=== PATIENT | female | born 1965 | race Two or more races ===

== ENCOUNTER 2020-09-03 09:58 | Outpatient (REF) | payer OTHER, SELFPAY ==
--- NOTE | 2020-09-03 | MM_ITS ---
EXAMINATION: MM SCREENING DIGITAL BREAST TOMOSYNTHESIS, BILATERAL CLINICAL INFORMATION: Screening. Asymptomatic. The lifetime risk of breast cancer based on the Tyrer-Cuzick Model is 6%. COMPARISON: Mammography: 08/29/2019, 08/23/2018, 08/17/2017, 02/07/2016 TECHNIQUE: Digital breast tomosynthesis is performed in both the craniocaudal and mediolateral oblique views along with computer-aided detection (CAD). Synthesized 2D images are generated from the tomosynthesis. FINDINGS: There are scattered areas of fibroglandular density (ACR BI-RADS breast composition Category b). There is fine fibronodular parenchymal pattern again noted. The left breast shows no interval mass or architectural abnormality. Neither breast shows abnormal calcifications. The skin contours are smooth. There is a 0.9 cm smooth nodule posterior upper outer right breast representing change from prior exams, possibly a cyst. Patient will be recalled for additional imaging. MM/MM tomosynthesis screening BI IMPRESSION: 1. Right: Smooth 0.9 cm nodule posterior upper outer quadrant. 2. Left: No mammographic evidence of malignancy. ASSESSMENT: BI-RADS 0: Incomplete - Need Additional Imaging Evaluation RECOMMENDATION: 1. Targeted ultrasound right breast. 2. Radiology department staff will contact the patient for additional imaging. This patient's information was entered into a reminder system with a target due date for their next mammogram.
== END 2020-09-03 09:59 | disposition home or self-care (01) ==
LOC: HO.MAMMO 09:58
PROVIDERS: Visit Provider Internal Medicine
DX: Z12.31 Encounter for screening mammogram for malignant neoplasm of breast (principal)
CPT/HCPCS: 77063; 77067

== ENCOUNTER 2020-09-10 13:26 | Outpatient (REF) | payer OTHER, SELFPAY ==
--- NOTE | 2020-09-10 13:32 | US_ITS ---
EXAMINATION: US DIAGNOSTIC ULTRASOUND BREAST, RIGHT CLINICAL INFORMATION: Right breast density upper outer quadrant. COMPARISON: Mammography of September 03, 2020 and studies dating back to August 30, 2013. TECHNIQUE: Ultrasound of the breast is performed with real-time oates scale imaging and color Doppler. FINDINGS: There is noted be a simple cyst measuring approximately 8 x 6 x 9 mm in size 10:00 position 8 cm from nipple which corresponds in size and position to the mammographic finding. No suspicious solid mass or region of abnormal distal sound shadowing appreciated. Results are discussed with the patient at time of visit. US/US breast RT limited IMPRESSION: Right breast density corresponds to a simple cyst. ASSESSMENT: BI-RADS 2: Benign RECOMMENDATION: Routine annual mammography screening due in 12 months. This patient's information was entered into a reminder system with a target due date for their next mammogram.
== END 2020-09-10 13:27 | disposition home or self-care (01) ==
LOC: HO.MAMMO 13:26
PROVIDERS: PCP Internal Medicine; Visit Provider Internal Medicine
DX: N63.11 Unspecified lump in the right breast, upper outer quadrant (principal)
CPT/HCPCS: 76642

== ENCOUNTER 2020-09-26 09:26 | Outpatient (REF) | payer OTHER, SELFPAY ==
[2020-09-26 10:23] LABS: MANUAL DIFF FLAG NO
[2020-09-26 10:40] LABS: Basophils Percent Auto 0.7 % (0-2); Eosinophils Absolute Auto 0.1 X10*3/uL (0.0-0.4); Eosinophils Percent Auto 3.9 % (0-4); Hematocrit 40.1 % (37-47); Hemoglobin 12.4 g/dl (12.0-16.0); Imm Gran Abs Auto 0.01 X10*3/uL (0.00-0.03); Imm Gran Pct Auto 0.4 % (0.0-0.4); Lymphocytes Absolute Auto 1.1 X10*3/uL (1.2-4.9); Lymphocytes Percent Auto 39.7 % (20-40); Mean Corpuscular HGB Conc 30.9 g/dl (31.0-35.0); Mean Corpuscular Hemoglobin 28.3 pg (27.0-33.0); Mean Corpuscular Volume 91.6 fL (80-98); Mean Platelet Volume 12.3 fL (9.4-12.3); Monocytes Absolute Auto 0.3 X10*3/uL (0.1-1.2); Monocytes Percent Auto 9.9 % (2-11); Neutrophils Absolute Auto 1.3 X10*3/uL (2.0-8.3); Neutrophils Percent Auto 45.4 % (45-73); Platelet Count 157 X10*3/uL (160-400); Red Blood Count 4.38 X10*6/uL (4.20-5.50); White Blood Count 2.8 X10*3/uL (4.8-10.8)
[2020-09-26 11:08] LABS: Alanine Aminotransferase 14 U/L (0-31); Albumin Level 4.4 g/dL (3.5-5.0); Alkaline Phosphatase 63 U/L (39-117); Anion Gap 12 (12-20); Aspartate Amino Transferase 17 U/L (5-31); Bilirubin Total 0.6 mg/dL (0.0-1.0); Blood Urea Nitrogen 18 mg/dL (9-16); Calcium 9.5 mg/dL (8.4-10.2); Carbon Dioxide 30 mmol/L (22-29); Chloride 103 mmol/L (96-108); Estimated Glomerular Filt Rate > 60; Glucose Random 87 mg/dL (60-115); Sodium 141 mmol/L (135-145); Total Protein 7.7 g/dL (6.5-8.0)
[2020-09-26 11:26] LABS: Creatinine Urine 35.46 mg/dL; Total Protein Urine Random < 7 mg/dL (<12)
[2020-09-26 11:29] LABS: Ferritin 307 ng/mL (10-250)
== END 2020-09-26 09:27 | disposition home or self-care (01) ==
LOC: HO.LAB 09:26
PROVIDERS: PCP Internal Medicine; Visit Provider Internal Medicine
DX: D50.8 Other iron deficiency anemias (principal); I10 Essential (primary) hypertension; R80.8 Other proteinuria
CPT/HCPCS: 36415; 80053; 82728; 84156; 85025

== ENCOUNTER 2021-01-18 09:57 | Outpatient (REF) | payer OTHER, SELFPAY ==
[2021-01-23 08:12] LABS: HPV mRNA E6/E7 rflx Not Detected (Not Detected)
== END 2021-01-18 09:58 | disposition home or self-care (01) ==
LOC: HO.LAB 09:57
PROVIDERS: Visit Provider Obstetrics & Gynecology
DX: Z01.419 Encounter for gynecological examination (general) (routine) without abnormal findings (principal); Z11.51 Encounter for screening for human papillomavirus (HPV)
CPT/HCPCS: 87624; 88142

== ENCOUNTER 2021-10-08 07:37 | Outpatient (REF) | payer OTHER, SELFPAY ==
[2021-10-08 07:51] LABS: MANUAL DIFF FLAG NO
[2021-10-08 08:33] LABS: Basophils Percent Auto 0.4 % (0-2); Eosinophils Absolute Auto 0.1 X10*3/uL (0.0-0.4); Eosinophils Percent Auto 5.2 % (0-4); Hematocrit 38.2 % (37.0-47.0); Hemoglobin 11.7 g/dl (12.0-16.0); Imm Gran Abs Auto 0.01 X10*3/uL (0.00-0.03); Imm Gran Pct Auto 0.4 % (0.0-0.4); Lymphocytes Absolute Auto 1.1 X10*3/uL (1.2-4.9); Lymphocytes Percent Auto 41.8 % (20-40); Mean Corpuscular HGB Conc 30.6 g/dl (31.0-35.0); Mean Corpuscular Hemoglobin 27.8 pg (27.0-33.0); Mean Corpuscular Volume 90.7 fL (80.0-98.0); Mean Platelet Volume 12.3 fL (9.4-12.3); Monocytes Absolute Auto 0.4 X10*3/uL (0.1-1.2); Monocytes Percent Auto 13.4 % (2-11); Neutrophils Percent Auto 38.8 % (45-73); Platelet Count 145 X10*3/uL (160-400); Red Blood Count 4.21 X10*6/uL (4.20-5.50); Red Cell Distribution Width 12.3 % (11.0-16.0); White Blood Count 2.7 X10*3/uL (4.8-10.8)
[2021-10-08 09:00] LABS: Alanine Aminotransferase 13 U/L (0-31); Albumin Level 4.1 g/dL (3.5-5.0); Alkaline Phosphatase 58 U/L (39-117); Anion Gap 12 (12-20); Aspartate Amino Transferase 20 U/L (5-31); Bilirubin Total 0.6 mg/dL (0.0-1.0); Blood Urea Nitrogen 14 mg/dL (9-16); Calcium 9.5 mg/dL (8.4-10.2); Carbon Dioxide 29 mmol/L (22-29); Chloride 105 mmol/L (96-108); Cholesterol 181 mg/dL; Estimated Glomerular Filt Rate > 60; Glucose Random 87 mg/dL (60-115); HDL Cholesterol 52 mg/dL; LDL Cholesterol Calculated 120 mg/dl; Potassium 4.4 mmol/L (3.3-5.1); Sodium 142 mmol/L (135-145); Total Protein 7.5 g/dL (6.5-8.0); Triglycerides 46 mg/dL
[2021-10-08 09:15] LABS: Creatinine Urine 77.73 mg/dL; Microalbumin Urine < 5.0 mg/L
[2021-10-08 09:24] LABS: Thyroid Stimulating Hormone 2.89 uIU/mL (0.32-4.0)
== END 2021-10-08 07:38 | disposition home or self-care (01) ==
LOC: HO.LAB 07:37
PROVIDERS: PCP Internal Medicine; Visit Provider Internal Medicine
DX: I10 Essential (primary) hypertension (principal); M06.4 Inflammatory polyarthropathy; M32.9 Systemic lupus erythematosus, unspecified; R80.8 Other proteinuria
CPT/HCPCS: 36415; 80053; 80061; 82043; 84443; 85025

== ENCOUNTER 2021-10-31 13:58 | Outpatient (REF) | payer OTHER, SELFPAY ==
--- NOTE | ~2021-10-31 | MM_ITS ---
EXAMINATION: MM SCREENING DIGITAL BREAST TOMOSYNTHESIS, BILATERAL CLINICAL INFORMATION: Screening. Asymptomatic. The lifetime risk of breast cancer based on the Tyrer-Cuzick Model is 4.8%. COMPARISON: Mammography: Ultrasound September 10, 2020 and mammography dating back to August 30, 2013 TECHNIQUE: Digital breast tomosynthesis is performed in both the craniocaudal and mediolateral oblique views along with computer-aided detection (CAD). Synthesized 2D images are generated from the tomosynthesis. FINDINGS: There are scattered areas of fibroglandular density (ACR BI-RADS breast composition Category b). There are no significant masses, abnormal calcifications, or other abnormalities. There is stable oval lobulated density about the central medial aspect of the right breast. MM/MM tomosynthesis screening BI IMPRESSION: There are no significant changes from prior study. ASSESSMENT: BI-RADS 1: Negative RECOMMENDATION: Routine annual mammography screening. This patient's information was entered into a reminder system with a target due date for their next mammogram.
== END 2021-10-31 13:59 | disposition home or self-care (01) ==
LOC: HO.MAMMO 13:58
PROVIDERS: PCP Internal Medicine; Visit Provider Internal Medicine
DX: Z12.31 Encounter for screening mammogram for malignant neoplasm of breast (principal)
CPT/HCPCS: 77063; 77067

== ENCOUNTER 2022-01-08 06:55 | Outpatient (REF) | payer OTHER, SELFPAY ==
[2022-01-08 07:17] LABS: MANUAL DIFF FLAG NO
[2022-01-08 08:03] LABS: Basophils Percent Auto 0.4 % (0-2); Eosinophils Absolute Auto 0.1 X10*3/uL (0.0-0.4); Eosinophils Percent Auto 3.1 % (0-4); Hematocrit 37.2 % (37.0-47.0); Hemoglobin 11.5 g/dl (12.0-16.0); Lymphocytes Absolute Auto 0.8 X10*3/uL (1.2-4.9); Lymphocytes Percent Auto 32.2 % (20-40); Mean Corpuscular HGB Conc 30.9 g/dl (31.0-35.0); Mean Corpuscular Hemoglobin 28.2 pg (27.0-33.0); Mean Corpuscular Volume 91.2 fL (80.0-98.0); Mean Platelet Volume 12.5 fL (9.4-12.3); Monocytes Absolute Auto 0.3 X10*3/uL (0.1-1.2); Monocytes Percent Auto 12.4 % (2-11); Neutrophils Absolute Auto 1.3 x10*3/uL (2.0-8.3); Neutrophils Percent Auto 51.9 % (45-73); Platelet Count 124 X10*3/uL (160-400); Red Blood Count 4.08 X10*6/uL (4.20-5.50); Red Cell Distribution Width 12.7 % (11.0-16.0); White Blood Count 2.6 X10*3/uL (4.8-10.8)
[2022-01-08 08:28] LABS: Alanine Aminotransferase 19 U/L (0-31); Alkaline Phosphatase 60 U/L (39-117); Anion Gap 11 (12-20); Aspartate Amino Transferase 20 U/L (5-31); Bilirubin Total 0.5 mg/dL (0.0-1.0); Blood Urea Nitrogen 14 mg/dL (9-16); Calcium 9.7 mg/dL (8.4-10.2); Carbon Dioxide 29 mmol/L (22-29); Chloride 106 mmol/L (96-108); Cholesterol 146 mg/dL; Estimated Glomerular Filt Rate > 60; Glucose Random 84 mg/dL (60-115); HDL Cholesterol 48 mg/dL; LDL Cholesterol Calculated 87 mg/dl; Potassium 4.1 mmol/L (3.3-5.1); Sodium 142 mmol/L (135-145); Total Protein 7.3 g/dL (6.5-8.0); Triglycerides 55 mg/dL
[2022-01-08 08:57] LABS: Ferritin 290 ng/mL (10-250)
== END 2022-01-08 06:56 | disposition home or self-care (01) ==
LOC: HO.LAB 06:55
PROVIDERS: PCP Internal Medicine; Visit Provider Internal Medicine
DX: Z00.00 Encounter for general adult medical examination without abnormal findings (principal); D61.818 Other pancytopenia; E78.00 Pure hypercholesterolemia, unspecified; I10 Essential (primary) hypertension; M32.9 Systemic lupus erythematosus, unspecified; R80.8 Other proteinuria
CPT/HCPCS: 36415; 80053; 80061; 82728; 85025

== ENCOUNTER 2022-01-22 15:18 | Outpatient (REF) | payer OTHER, SELFPAY ==
[2022-01-28 02:13] LABS: HPV mRNA E6/E7 rflx Not Detected (Not Detected)
== END 2022-01-22 15:19 | disposition home or self-care (01) ==
LOC: HO.LAB 15:18
PROVIDERS: Visit Provider Advanced Practice Midwife
DX: Z01.419 Encounter for gynecological examination (general) (routine) without abnormal findings (principal); B37.3 Candidiasis of vulva and vagina; Z79.899 Other long term (current) drug therapy
CPT/HCPCS: 87624; 88142; 99212

== ENCOUNTER 2022-10-10 07:43 | Outpatient (REF) | payer OTHER, SELFPAY ==
[2022-10-10 07:58] LABS: MANUAL DIFF FLAG NO
[2022-10-10 08:13] LABS: Basophils Percent Auto 0.3 % (0-2); Eosinophils Absolute Auto 0.1 X10*3/uL (0.0-0.4); Eosinophils Percent Auto 3.9 % (0-4); Imm Gran Abs Auto 0.01 X10*3/uL (0.00-0.03); Imm Gran Pct Auto 0.3 % (0.0-0.4); Lymphocytes Absolute Auto 1.1 X10*3/uL (1.2-4.9); Lymphocytes Percent Auto 34.4 % (20-40); Mean Corpuscular HGB Conc 31.6 g/dl (31.0-35.0); Mean Corpuscular Hemoglobin 28.3 pg (27.0-33.0); Mean Corpuscular Volume 89.6 fL (80.0-98.0); Mean Platelet Volume 12.3 fL (9.4-12.3); Monocytes Absolute Auto 0.4 X10*3/uL (0.1-1.2); Monocytes Percent Auto 11.7 % (2-11); Neutrophils Absolute Auto 1.5 x10*3/uL (2.0-8.3); Neutrophils Percent Auto 49.4 % (45-73); Platelet Count 133 X10*3/uL (160-400); Red Blood Count 4.24 X10*6/uL (4.20-5.50); Red Cell Distribution Width 12.5 % (11.0-16.0); White Blood Count 3.1 X10*3/uL (4.8-10.8)
[2022-10-10 08:36] LABS: Alanine Aminotransferase 24 U/L (0-31); Albumin Level 4.2 g/dL (3.5-5.0); Alkaline Phosphatase 69 U/L (39-117); Anion Gap 13 (12-20); Aspartate Amino Transferase 23 U/L (5-31); Bilirubin Total 0.6 mg/dL (0.0-1.0); Blood Urea Nitrogen 23 mg/dL (9-16); Calcium 8.7 mg/dL (8.4-10.2); Carbon Dioxide 25 mmol/L (22-29); Chloride 107 mmol/L (96-108); Cholesterol 148 mg/dL; Estimated Glomerular Filt Rate > 60; Glucose Random 88 mg/dL (60-115); HDL Cholesterol 52 mg/dL; LDL Cholesterol Calculated 90 mg/dl; Potassium 4.1 mmol/L (3.3-5.1); Sodium 141 mmol/L (135-145); Total Protein 7.2 g/dL (6.5-8.0); Triglycerides 32 mg/dL
== END 2022-10-10 07:44 | disposition home or self-care (01) ==
LOC: HO.LAB 07:43
PROVIDERS: PCP Internal Medicine; Visit Provider Internal Medicine
DX: D64.89 Other specified anemias (principal); E78.00 Pure hypercholesterolemia, unspecified; I10 Essential (primary) hypertension; M06.4 Inflammatory polyarthropathy
CPT/HCPCS: 36415; 80053; 80061; 85025

== ENCOUNTER 2022-11-26 12:44 | Outpatient (REF) | payer OTHER, SELFPAY ==
--- NOTE | ~2022-11-26 | MM_ITS ---
EXAMINATION: MM SCREENING DIGITAL BREAST TOMOSYNTHESIS, BILATERAL CLINICAL INFORMATION: Screening. Asymptomatic. The lifetime risk of breast cancer based on the Tyrer-Cuzick Model is 5%. COMPARISON: Mammography: October 31, 2021 and studies dating back to October 02, 2014 TECHNIQUE: Digital breast tomosynthesis is performed in both the craniocaudal and mediolateral oblique views along with computer-aided detection (CAD). Synthesized 2D images are generated from the tomosynthesis. FINDINGS: The breasts are heterogeneously dense, which may obscure small masses (ACR BI-RADS breast composition Category c). There are no new significant masses, abnormal calcifications, or other abnormalities. Oval density about the mid lateral aspect of the left breast is seen and there is noted to be similar to study of August 29, 2019 MM/MM tomosynthesis screening BI IMPRESSION: No significant changes from prior exam. ASSESSMENT: BI-RADS 1: Negative RECOMMENDATION: Routine annual mammography screening. This patient's information was entered into a reminder system with a target due date for their next mammogram.
== END 2022-11-26 12:45 | disposition home or self-care (01) ==
LOC: HO.MAMMO 12:44
PROVIDERS: PCP Internal Medicine; Visit Provider Internal Medicine
DX: Z12.31 Encounter for screening mammogram for malignant neoplasm of breast (principal)
CPT/HCPCS: 77063; 77067

== ENCOUNTER 2022-12-20 07:04 | Outpatient (REF) | payer OTHER, SELFPAY ==
[2022-12-20 07:24] LABS: MANUAL DIFF FLAG NO
[2022-12-20 09:02] LABS: Basophils Percent Auto 0.7 % (0-2); Eosinophils Absolute Auto 0.2 X10*3/uL (0.0-0.4); Eosinophils Percent Auto 5.2 % (0-4); Hemoglobin 11.4 g/dl (12.0-16.0); Lymphocytes Percent Auto 35.2 % (20-40); Mean Corpuscular HGB Conc 31.7 g/dl (31.0-35.0); Mean Corpuscular Hemoglobin 28.8 pg (27.0-33.0); Mean Corpuscular Volume 90.9 fL (80.0-98.0); Mean Platelet Volume 12.3 fL (9.4-12.3); Monocytes Absolute Auto 0.4 X10*3/uL (0.1-1.2); Monocytes Percent Auto 14.3 % (2-11); Neutrophils Absolute Auto 1.3 x10*3/uL (2.0-8.3); Neutrophils Percent Auto 44.6 % (45-73); Platelet Count 158 X10*3/uL (160-400); Red Blood Count 3.96 X10*6/uL (4.20-5.50); Red Cell Distribution Width 12.3 % (11.0-16.0); White Blood Count 2.9 X10*3/uL (4.8-10.8)
[2022-12-20 09:32] LABS: Alanine Aminotransferase 15 U/L (0-31); Alkaline Phosphatase 65 U/L (39-117); Anion Gap 14 (12-20); Aspartate Amino Transferase 18 U/L (5-31); Bilirubin Total 0.4 mg/dL (0.0-1.0); Blood Urea Nitrogen 17 mg/dL (9-16); Calcium 9.1 mg/dL (8.4-10.2); Carbon Dioxide 24 mmol/L (22-29); Chloride 104 mmol/L (96-108); Estimated Glomerular Filt Rate > 60; Glucose Random 83 mg/dL (60-115); Potassium 4.4 mmol/L (3.3-5.1); Sodium 138 mmol/L (135-145)
[2022-12-20 10:03] LABS: Creatinine Urine 33.92 mg/dL; Total Protein Urine Random < 7 mg/dL (<12)
== END 2022-12-20 07:05 | disposition home or self-care (01) ==
LOC: HO.LAB 07:04
PROVIDERS: PCP Internal Medicine; Visit Provider Internal Medicine
DX: Z00.00 Encounter for general adult medical examination without abnormal findings (principal); D69.6 Thrombocytopenia, unspecified; E78.00 Pure hypercholesterolemia, unspecified; I10 Essential (primary) hypertension; M32.9 Systemic lupus erythematosus, unspecified
CPT/HCPCS: 36415; 80053; 84156; 85025

== ENCOUNTER 2023-01-26 14:28 | Outpatient (REF) | payer OTHER, SELFPAY ==
[2023-01-27 11:19] LABS: BV Int Neg Control Negative (Negative); BV Int Pos Control Positive (Positive)
== END 2023-01-26 14:29 | disposition home or self-care (01) ==
LOC: HO.LNP 14:28
PROVIDERS: PCP Internal Medicine; Visit Provider Advanced Practice Midwife
DX: Z01.419 Encounter for gynecological examination (general) (routine) without abnormal findings (principal); B37.31 Acute candidiasis of vulva and vagina; F52.5 Vaginismus not due to a substance or known physiological condition
CPT/HCPCS: 87480; 87510; 87660

== ENCOUNTER 2023-09-30 15:06 | Outpatient (AMB) | payer OTHER, SELFPAY ==
[2023-09-30 15:08] VITALS: BP 110/70; PULSE 86; TEMP 36.7; O2SAT 99; BMI 30.4
--- NOTE | 2023-09-30 15:08 | AM.OFFWIN_ITS ---
Intake Vital Signs 09/30/23 15:08 Height 5 ft 2 in Weight 166 lb BMI 30.4 BP 110/70 Blood Pressure Location Lt brachial Position Sitting Pulse 86 Pulse Source Pulse Oximeter Temp 98.0 F Temp Source Temporal Artery Scan Pulse Oximetry (%) 99 Oxygen Delivery Method Room Air Intake Visit Reasons: EP sinus headache/pressure Intake Note: pt is here today for sinus headache pressure started yesterday Patient Tobacco Use Status: Never used Tobacco Allergies No Known Allergies Allergy (Verified 09/30/23 15:17) Do you need a note to return to daycare/school/sports/work: Yes HPI HPI Comments History of Present Illness Details 57 y/o female patient who presents to [facility] in clinic with c/o Sinus pressure and headaches since yesterday. She has not taken any OTC medicine today. Denies fevers, chills, nausea or vomiting. Denies any recent sick contacts. PFSH Medical History (System 05/20/23 @ 15:15 by Linda Flaherty) delivery delivered HTN (hypertension) Surgical History Hx of section S/P hernia surgery Social History (System 05/20/23 @ 15:15 by Linda Flaherty) Alcohol intake: never Patient Tobacco Use Status: Never used Tobacco Gender identity: Female Review of Systems Const All systems reviewed & are unremarkable except as noted in HPI and below Physical Exam Vital Signs: Last Vital Signs Temp 98.0 F 09/30/23 15:08 Pulse 86 09/30/23 15:08 BP 110/70 09/30/23 15:08 Pulse Ox 99 09/30/23 15:08 Oxygen Delivery Method Room Air 09/30/23 15:08 BMI result Body Mass Index 30.4 Const General: comfortable and no acute distress HEENT Head: Yes normocephalic and Yes atraumatic Ears: external ears normal and TM's normal bilaterally General nose exam: Normal nasal mucous membranes and turbinates present Face and sinus: Yes sinuses nontender Mouth: moist mucous membranes Throat: Yes posterior oropharynx normal and Yes uvula midline Resp Effort & Inspection: normal respiratory effort and able to speak in complete sentences Auscultation: clear to auscultation bilaterally Cardio Rate: regular rate Rhythm: regular rhythm Assessment & Plan Assessment & Plan (1) Sinus headache: Code(s): R51.9 - Headache, unspecified Plan: - Rest - Acetaminophen for pain relief - Hydrate well Orders: Orders SARS-CoV2/FLU/RSV Today R09.89 - Other specified symptoms and signs involving the circulatory and respiratory systems, R51.9 - Headache, unspecified Medications: New acetaminophen (Tylenol) TAKE 2 TABS EVERY SIX HOURS NEEDED FOR PAIN 325 mg PO Q6H PRN 30 caps 0RF fever or pain R51.9 - Headache, unspecified Coding Level of Care Code Est Pt Level 3 (38541) Diagnoses Sinus headache R51.9 Time Spent (min) 15
== END 2023-09-30 15:49 | disposition home or self-care (01) ==
PROVIDERS: PCP Internal Medicine; Visit Provider Nurse Practitioner Family
DX: R51.9 Headache, unspecified (principal)
CPT/HCPCS: 99213

== ENCOUNTER 2023-09-30 16:28 | Outpatient (REF) | payer OTHER, SELFPAY ==
[2023-09-30 17:17] LABS: Influenza A PCR NEGATIVE (Negative); Influenza B PCR NEGATIVE (Negative); Resp Syncy Virus RNA Qual PCR NEGATIVE (Negative); SARS COV2 PCR INHOUSE NEGATIVE (Negative)
== END 2023-09-30 16:29 | disposition home or self-care (01) ==
LOC: HO.HMGCLNP 16:28
PROVIDERS: Visit Provider Nurse Practitioner Family
DX: R51.9 Headache, unspecified (principal); R09.89 Other specified symptoms and signs involving the circulatory and respiratory systems
CPT/HCPCS: 0241U

== ENCOUNTER 2023-10-17 07:47 | Outpatient (REF) | payer OTHER, SELFPAY ==
[2023-10-17 08:58] LABS: Alanine Aminotransferase 21 U/L (0-31); Albumin Level 4.1 g/dL (3.5-5.0); Alkaline Phosphatase 67 U/L (39-117); Anion Gap 10 (12-20); Aspartate Amino Transferase 19 U/L (5-31); Bilirubin Total 0.6 mg/dL (0.0-1.0); Blood Urea Nitrogen 11 mg/dL (9-16); Calcium 9.3 mg/dL (8.4-10.2); Carbon Dioxide 30 mmol/L (22-29); Chloride 103 mmol/L (96-108); Cholesterol 143 mg/dL (<200); Estimated Glomerular Filt Rate > 60; Glucose Random 86 mg/dL (60-115); HDL Cholesterol 54 mg/dL (>40); LDL Cholesterol Calculated 80 mg/dL (<100); Potassium 4.1 mmol/L (3.3-5.1); Sodium 139 mmol/L (135-145); Total Protein 7.5 g/dL (6.5-8.0); Triglycerides 47 mg/dL (<150)
== END 2023-10-17 07:48 | disposition home or self-care (01) ==
LOC: HO.LAB 07:47
PROVIDERS: PCP Internal Medicine; Visit Provider Internal Medicine
DX: E78.00 Pure hypercholesterolemia, unspecified (principal); I10 Essential (primary) hypertension; M32.9 Systemic lupus erythematosus, unspecified; R80.9 Proteinuria, unspecified
CPT/HCPCS: 36415; 80053; 80061

== ENCOUNTER 2023-12-16 14:15 | Outpatient (REF) | payer OTHER, SELFPAY | END 2023-12-16 14:16 | disposition home or self-care (01) | LOC: HO.MAMMO 14:15 | PROVIDERS: PCP Internal Medicine; Visit Provider Internal Medicine | DX: Z12.31 Encounter for screening mammogram for malignant neoplasm of breast (principal) | CPT/HCPCS: 77063; 77067 ==

== ENCOUNTER → 2023-12-16 14:15 | Outpatient (BNV) | payer OTHER, SELFPAY | PROVIDERS: PCP Internal Medicine; Visit Provider Radiology Diagnostic Radiology | DX: Z12.31 Encounter for screening mammogram for malignant neoplasm of breast (principal) | CPT/HCPCS: 77063; 77067 ==

== ENCOUNTER 2024-01-11 10:48 | Outpatient (AMB) | payer OTHER, SELFPAY ==
--- NOTE | 2024-01-11 12:08 | MHC.OFFWIV ---
Intake Vital Signs 01/11/24 12:11 Height 5 ft 2 in BP 116/72 Blood Pressure Location Rt brachial Position Sitting Pulse 71 Pulse Source Pulse Oximeter Temp 97.8 F Temp Source Oral Pulse Oximetry (%) 99 Intake Visit Reasons: EP Itchy/Discharge from eyes, cough Intake Note: pt is here for itchy with discharge from bilateral eyes, with cough since last week Patient Tobacco Use Status: Never used Tobacco Forensic Photographer Required: Yes Forensic Photographer Language: Telugu Allergies No Known Allergies Allergy (Verified 01/11/24 12:12) Do you need a note to return to daycare/school/sports/work: No HPI EP Itchy/Discharge from eyes, cough HPI Details Patient presents with 4 days of purulent discharge from bilateral eyes. She also notes sinus pressure and congestion. She denies fever productive cough chills or severe headache or vision change. [facility] Medical History (System 05/20/23 @ 15:15 by Linda Flaherty) delivery delivered HTN (hypertension) Surgical History Hx of section S/P hernia surgery Social History (System 05/20/23 @ 15:15 by Linda Flaherty) Alcohol intake: never Patient Tobacco Use Status: Never used Tobacco Gender identity: Female Review of Systems Const Reports as per HPI and Reports no additional complaints Eyes Reports no additional complaints ENT Reports no additional complaints and Reports as per HPI Card Reports as per HPI and Reports no additional complaints Resp Reports as per HPI and Reports no additional complaints Neuro Reports no additional complaints and Reports as per HPI Physical Exam Vital Signs: Last Vital Signs Temp 97.8 F 01/11/24 12:11 Pulse 71 01/11/24 12:11 BP 116/72 01/11/24 12:11 Pulse Ox 99 01/11/24 12:11 Const General: cooperative, comfortable and no acute distress Orientation/consciousness: patient oriented x3 HEENT Ears: external ears normal and TM's normal bilaterally General nose exam: Normal external nose present and Nasal discharge present mucoid Face and sinus: Yes Facial tenderness on exam of face and sinuses (Bilateral maxillary sinuses) Mouth: Normal oral and palatal mucosa present Eyes Alignment and Position: alignment normal Periorbital: periorbital findings normal Eyelids: Yes eyelids normal Conjunctivae: conjunctival abnormal bilateral (Injection with mild purulent discharge noted) Corneas: corneas normal Pupils: Equal, round and reactive pupils present EOM: EOMs intact bilaterally Resp Effort & Inspection: normal respiratory effort Auscultation: clear to auscultation bilaterally Cardio Rate: regular rate Rhythm: regular rhythm Heart sounds: S1 normal heart sound present and S2 normal heart sound present Neuro General: patient oriented x3 Cranial nerves: Yes Equal, round and reactive pupils present Assessment & Plan Assessment & Plan (1) Sinusitis, acute: Code(s): J01.90 - Acute sinusitis, unspecified Qualifiers: Sinusitis location: maxillary Recurrence: non-recurrent Qualified Code(s): J01.00 - Acute maxillary sinusitis, unspecified Plan: Will treat with Augmentin b.i.d. times 10 days. Return to clinic if symptoms do not improve or worsen in any way (2) Conjunctivitis: Code(s): H10.9 - Unspecified conjunctivitis Qualifiers: Conjunctivitis type: acute Acute conjunctivitis type: bacterial Laterality: bilateral Qualified Code(s): H10.33 - Unspecified acute conjunctivitis, bilateral Plan: Will treat with Polytrim drops t.i.d. x7 days return to clinic if symptoms do not improve in any way. Medications: New amoxicillin-pot clavulanate 875-125 mg 1 tab PO Q12H 20 tabs 0RF 10 days polymyxin B sulf-trimethoprim 10,000 unit- 1 mg/mL while awake; do not exceed 6 doses in 24 hours 1 drp ophthalmic (eye) QID 10 mL 0RF both eyes 7 days H10.9 - Unspecified conjunctivitis Coding Level of Care Code Est Pt Level 3 (84232) Diagnoses Acute non-recurrent maxillary sinusitis J01.00 Sinusitis location: maxillary Recurrence: non-recurrent Acute bacterial conjunctivitis of both eyes H10.33 Conjunctivitis type: acute Acute conjunctivitis type: bacterial Laterality: bilateral
[2024-01-11 12:11] VITALS: BP 116/72; PULSE 71; TEMP 36.6; O2SAT 99
== END 2024-01-11 12:33 | disposition home or self-care (01) ==
PROVIDERS: PCP Internal Medicine; Visit Provider Physician Assistant
DX: J01.00 Acute maxillary sinusitis, unspecified (principal); H10.33 Unspecified acute conjunctivitis, bilateral
CPT/HCPCS: 99213

== ENCOUNTER 2024-01-21 14:25 | Outpatient (REF) | payer OTHER, SELFPAY ==
[2024-01-21 15:26] LABS: Anion Gap 10 (12-20); Blood Urea Nitrogen 12 mg/dL (9-16); Carbon Dioxide 29 mmol/L (22-29); Chloride 95 mmol/L (96-108); Estimated Glomerular Filt Rate > 60; Potassium 3.9 mmol/L (3.3-5.1); Sodium 130 mmol/L (135-145)
[2024-01-21 16:44] LABS: Creatinine Urine 28.93 mg/dL; Total Protein Urine Random < 7 mg/dL (<12)
[2024-01-22 12:23] LABS: Complement C3 59 mg/dL (83-193)
[2024-01-26 13:24] LABS: ANA Pattern 2 Nuclear, Homogeneous; Anti Nuclear Antibody Screen POSITIVE (NEGATIVE)
== END 2024-01-21 14:26 | disposition home or self-care (01) ==
LOC: HO.LAB 14:25
PROVIDERS: Visit Provider Internal Medicine Nephrology
DX: M32.14 Glomerular disease in systemic lupus erythematosus (principal)
CPT/HCPCS: 36415; 80051; 82310; 82565; 82570; 84156; 84520; 86038; 86039; 86160

== ENCOUNTER 2024-03-17 14:49 | Outpatient (AMB) | payer OTHER, SELFPAY ==
[2024-03-17 15:17] VITALS: BP 94/64; BMI 29.6
--- NOTE | 2024-03-17 15:17 | MHC.OFFVIS ---
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 Repairer Forging: Die Repairer Forging Present Allergies No Known Allergies Allergy (Verified 03/17/24 15:18) Medication List - Last Reconciled 03/17/24 by Letty Montes CNM acetaminophen 1,000 mg (2 x 500 mg) PO Q6H PRN atorvastatin 10 mg PO DAILY clotrimazole 1% appl topical BID hydroxychloroquine 200 mg PO BID lisinopril 20 mg PO DAILY lisinopril-hydrochlorothiazide 20-12.5 mg 1 tab PO DAILY polymyxin B sulf-trimethoprim 10,000 unit- 1 mg/mL 1 drp ophthalmic (eye) QID 7 days triamcinolone acetonide 0.5% appl topical Post menopausal: Yes HPI HPI 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 She does remember that last year's pelvic exam was very very difficult and traumatic so we discussed that we do not need to repeat the pelvic exam this year if she is not having any issues at all she is not having any issues with vaginal itching either she says her insurance has a very high co-pay of 40 dollars and it really only helps her if it is a very expensive medication over 100 dollars. She is on lisinopril and something for her arthritis. Currently she is not having any issues and says her blood pressure is well-controlled. [facility] Medical History (Updated 03/17/24 @ 16:04 by Letty Montes CNM) Hyperlipemia delivery delivered HTN (hypertension) Surgical History S/P hernia surgery Hx of section Social History Alcohol intake: never Patient Tobacco Use Status: Never used Tobacco Gender identity: Female Female Reproductive History Menstrual Age of Menarche: 10 Duration of menses: <3 days control method: none Total pregnancies: 3 Full term: 3 Date of last pap smear: 01/22/22 (negative) History of abnormal pap smear: No Physical Exam Vital Signs: Last Vital Signs BP 94/64 03/17/24 15:17 BMI result Body Mass Index 29.6 Const General: healthy appearing, comfortable, no acute distress, well developed and alert Nutritional Appearance: average body habitus Orientation/consciousness: patient oriented x3 Limitations: no limitations HEENT Head: Yes normocephalic Neck Neck: Yes normal visual inspection Thyroid: Thyroid normal Chest Chest palpation & inspection: normal inspection of the chest Breast/axilla inspection: normal inspection of the breasts and normal inspection of the axillae Breast/axilla palpation: normal palpation of the breasts and normal palpation of the axillae Resp Effort & Inspection: normal respiratory effort GI Inspection: Yes normal to inspection, No Abdominal wall edema and No distended Palpation (GI): Soft to palpation and nontender Other: External exam within normal limits no vaginal redness or irritation or abnormal discharge speculum and bimanual exam deferred secondary to challenges of having exam last year for patient her last Pap smear was 2021- and she has never had a history of an abnormal Pap.. External Female Exam: normal external appearance and normal appearance of the urethra Neuro General: patient oriented x3 Results Reviewed Results Reviewed: Name: Mala Allen Age/Sex: 56/F Attending: Letty Montes CNM : 1965 Submitted by: Letty Montes CNM Copies to: MR #: [id number] Status: DEP REF Collected: 01/22/22 Location: .LAB Received: 01/23/22 Interpretation Satisfactory for evaluation. No endocervical cells seen. Mild inflammation. Negative for intraepithelial lesion or malignancy. HPV mRNA E6/E7: NOT DETECTED This assay detects E6/E7 viral messenger RNA (mRNA) from 14 high-risk HPV types (16, 18, 31, 33, 35, 39, 45, 51, 52, 56, 58, 59, 66, 68) HPV testing performed by [facility], [place], [place]. See reference laboratory pion of the EMR for entire report. Clinical Information LMP: Postmenopause Previous PAP test: 01/21/2021, Unknown Findings Material Received ThinPrep Cervical Electronically Signed By: LYSSA Stephens (ASCP) 02/06/22 0944 The Pap Test is a screening procedure with the inherent possibility of both false negative and false positive results. Results should be interpreted in the context of historic and current clinical findings. Reliability of the Pap Test is enhanced by performing the test on a regular repetitive basis. Patient: Mala Allen Age/Sex: 56/F MR#: [id number] Page 1 of 1 Assessment & Plan Assessment & Plan (1) Cervical cancer screening: Comment: lsil 2007,, neg 2020, pap done 01/22/22= neg w neg hpv Code(s): Z12.4 - Encounter for screening for malignant neoplasm of cervix Category: Medical (2) Well woman exam (no gynecological exam): Comment: External exam within normal limits for postmenopausal Code(s): Z00.00 - Encounter for general adult medical examination without abnormal findings Category: Medical Plan -----Discussed in this visit the following: healthy balanced diet, regular and consistent exercise, getting recommended health screens, doing the best she can for her particular health concerns, kegel exercises, pap smear screening and followup recommendations, mammography screening and SBE, normal changes in cycles in her life stage--- . I wrote down for her the names of miconazole 7 cream and clotrimazole 7 cream on a piece of paper and suggested that any time she has severe vaginal itching and burning and feels she needs to treat it that she should check [facility] for who has the cheapest available version of either of these creams to save her money she could consider having it available when she needs it but since she only rarely has an issue it may not be worth it to her to have around the house. Discussed the challenges of postmenopausal changes. 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 She is getting her mammograms and she sees her primary and she needs to and regularly she says her blood pressure is under good control RTC 1 year Coding Level of Care Code Est Pt Prev Care 40-64y(38524) Diagnoses Cervical cancer screening Z12.4 Well woman exam (no gynecological exam) Z00.00
== END 2024-03-17 15:57 | disposition home or self-care (01) ==
LOC: HO.HWSM 14:49
PROVIDERS: PCP Internal Medicine; Visit Provider Advanced Practice Midwife
DX: Z01.419 Encounter for gynecological examination (general) (routine) without abnormal findings (principal)
CPT/HCPCS: 99396

== ENCOUNTER → 2024-03-17 14:49 | Outpatient (BNVA) | payer OTHER, SELFPAY | PROVIDERS: PCP Internal Medicine; Visit Provider Advanced Practice Midwife | DX: Z01.419 Encounter for gynecological examination (general) (routine) without abnormal findings (principal); Z12.4 Encounter for screening for malignant neoplasm of cervix; Z00.00 Encounter for general adult medical examination without abnormal findings | CPT/HCPCS: 99396 ==

== ENCOUNTER 2024-03-29 11:03 | Outpatient (AMB) | payer OTHER, SELFPAY ==
--- NOTE | 2024-03-29 11:07 | MHC.OFFVIS ---
Vital Signs 03/29/24 11:08 Height 5 ft 2 in Weight 160 lb 14.999 oz BMI 29.4 BP 109/59 L Blood Pressure Location Lt brachial Position Sitting Pulse 69 Intake Visit Reasons: [place] screening Intake Note: Mala presents in the office as a colonoscopy screening. CC: She states that she is here today because she is due for a colonoscopy. She states that it has been a long time. Head Knitting Machine Fixer Required: Yes Head Knitting Machine Fixer Name: Hector [id number] Allergies No Known Allergies Allergy (Verified 03/29/24 11:12) HPI HPI [place] screening: Details: 58 year old? female with past medical history of hyperlipidemia, hypertension, just recently diagnosed with lupus is here today for pre colonoscopy screening.? Patient was sent to us by her PCP.? Last colonoscopy in 2023. Patient had no polyps, diverticulosis found in sigmoid colon.? Patient denies any gastrointestinal symptoms in the past or at present.? Denies any personal or family history of gastrointestinal disease, colon polyps, or CRC.? Denies history of difficulty with sedation or anesthesia in the past.? Negative for history of sleep apnea.? Denies any history of cardiac, renal, pulmonary, or hepatic disease.?? No history of infectious? diseases like hepatitis A, B, C, HIV or tuberculosis.? Patient is not on any anticoagulation [facility] Medical History (Updated 03/29/24 @ 12:12 [facility] Lupus Hyperlipemia delivery delivered HTN (hypertension) Surgical History (Updated 03/29/24 @ 11:12 by SHANA Thacker) Hx of colonoscopy S/P hernia surgery Hx of section Social History Alcohol intake: never Patient Tobacco Use Status: Never used Tobacco Gender identity: Female Female Reproductive History Menstrual Age of Menarche: 10 Review of Systems Const Denies weight gain and Denies weight loss ENT Reports no additional complaints, Denies dysphagia and Denies odynophagia Card Reports no additional complaints Resp Reports no additional complaints GI Denies abdominal pain, Denies belching, Denies melena, Denies bloating, Denies change in bowel habits, Denies dysphagia, Denies excessive flatus, Denies dyspepsia, Denies heartburn, Denies diarrhea, Denies loose stools, Denies nausea, Denies odynophagia and Denies vomiting Musc Reports no additional complaints Neuro Reports no additional complaints Psych Reports no additional complaints Endo Reports no additional complaints Physical Exam Vital Signs: BMI result Body Mass Index 29.4 Const General: healthy appearing, no acute distress and well developed Nutritional Appearance: well nourished Orientation/consciousness: patient oriented x3 Resp Effort & Inspection: normal respiratory effort, able to speak in complete sentences, no tracheal deviation and symmetric chest movement Auscultation: clear to auscultation bilaterally Cardio Rate: regular rate GI Inspection: Yes normal to inspection and No distended Palpation (GI): Soft to palpation, not firm, nontender and No hepatosplenomegaly present Auscultation: normal bowel sounds General: Yes no CVA tenderness Back/Spine/Pelvis Back: no CVA tenderness Skin General skin exam: elasticity normal, turgor normal and dry skin Neuro General: patient oriented x3 Psych Appearance: grossly normal Mental Status: mental status grossly normal Assessment & Plan Assessment & Plan (1) Screen for colon cancer: Code(s): Z12.11 - Encounter for screening for malignant neoplasm of colon Plan Patient denies any GI, cardiac or respiratory symptoms.? Denies any issues with anesthesia in the past.? Denies any history of sleep apnea.? No history infectious diseases in the past or present.? Not on any anticoagulation therapy.? No family or personal history of colon cancer or polyps.? Patient denies melena, hematochezia, unintentional weight loss or ribbon like stools.? Discussed at length the pre-procedure,? prep, diet & medications as well as what to expect prior, during and after the procedure.?? Stressed the importance of good bowel prep.? Recommended the use of Vaseline or Calmoseptine OTC & baby wipes with bowel movements to promote comfort.? ?Patient verbalizes understanding and agrees to plan of care.? She was given the opportunity to ask questions and all questions answered.? We will see her after the procedure.? Medications: New polyethylene glycol 3350 (Miralax) As directed by gastroenterology department at [facility] 238 grams PO ONCE 238 grams 0RF Z12.11 - Encounter for screening for malignant neoplasm of colon bisacodyl (Dulcolax (bisacodyl)) take 4 tabs at noon the day before your colonoscopy 20 mg (4 x 5 mg) PO ONCE 1 day 4 tabs 0RF Z12.11 - Encounter for screening for malignant neoplasm of colon Coding Level of Care Code New Pt Level 3 (75934) Diagnoses Screen for colon cancer Z12.11 Time Spent (min) 40 Comment 30 minutes spent with patient and additional 10 minutes spent reviewing her records
[2024-03-29 11:08] VITALS: BP 109/59; PULSE 69; BMI 29.4
== END 2024-03-29 11:36 | disposition home or self-care (01) ==
PROVIDERS: PCP Internal Medicine; Visit Provider Nurse Practitioner Family
DX: Z12.11 Encounter for screening for malignant neoplasm of colon (principal); Z01.818 Encounter for other preprocedural examination
CPT/HCPCS: 99203

== ENCOUNTER → 2024-03-29 11:03 | Outpatient (BNVA) | payer OTHER, SELFPAY | PROVIDERS: PCP Internal Medicine; Visit Provider Nurse Practitioner Family | DX: Z12.11 Encounter for screening for malignant neoplasm of colon (principal) | CPT/HCPCS: 99202 ==

== ENCOUNTER 2024-09-14 14:34 | Outpatient (REF) | payer OTHER, SELFPAY ==
[2024-09-14 14:51] LABS: MANUAL DIFF FLAG NO
[2024-09-14 15:14] LABS: Basophils Percent Auto 0.7 % (0-2); Eosinophils Absolute Auto 0.1 X10*3/uL (0.0-0.4); Eosinophils Percent Auto 5.1 % (0-4); Hematocrit 35.9 % (37.0-47.0); Hemoglobin 11.7 g/dl (12.0-16.0); Imm Gran Abs Auto 0.01 X10*3/uL (0.00-0.03); Imm Gran Pct Auto 0.4 % (0.0-0.4); Lymphocytes Absolute Auto 1.2 X10*3/uL (1.2-4.9); Lymphocytes Percent Auto 42.1 % (20-40); Mean Corpuscular HGB Conc 32.6 g/dl (31.0-35.0); Mean Corpuscular Hemoglobin 28.7 pg (27.0-33.0); Mean Platelet Volume 11.9 fL (9.4-12.3); Monocytes Absolute Auto 0.3 X10*3/uL (0.1-1.2); Monocytes Percent Auto 12.1 % (2-11); Neutrophils Absolute Auto 1.1 x10*3/uL (2.0-8.3); Neutrophils Percent Auto 39.6 % (45-73); Platelet Count 149 X10*3/uL (160-400); Red Blood Count 4.08 X10*6/uL (4.20-5.50); Red Cell Distribution Width 12.1 % (11.0-16.0); White Blood Count 2.7 X10*3/uL (4.8-10.8)
[2024-09-14 15:33] LABS: Prothrombin Time 11.5 SEC (10.9-12.4)
--- OUTSIDE RECORDS SUMMARY | 2024-09-14 15:45 | XMS_ITS | Encounter Summary ---
Author Organization [employer] [facility] Address [address] [facility] 7t [place] [address] Care Team Providers Care All Source Intelligence Technician Name Role Phone Unavailable Primary Care Provider Unavailabl e Encounter Details Date Type Department Care Team (Latest Contact Info) Description 03/04/2022 Abstract [facility] CONVERSIONS Dental, Provider, DDS Social History Tobacco Use Types Packs/Day Years Used Date Smoking Tobacco: Never Assessed Comments Unknown Sex and Gender Information Value Date Recorded Sex Assigned at Female 06/09/2022 10:15 AM EDT Legal Sex Female 10:15 AM EDT Gender Identity Female 12/30/2022 3:07 PM EDT Sexual Orientation Straight 12/30/2022 3: 07 PM EDT documented as of this encounter Plan of Treatment Upcoming Encounters Date Type Department Care Team (Late st Contact Info) Description 02/15/2025 3:00 PM EDT Office Visit [facility] ADULT DENTAL [address] [place] [address] Ijeoma Olvera documented as of this encounter Visit Diagnoses Not on filedocumented in this encounter
--- OUTSIDE RECORDS SUMMARY | 2024-09-14 15:45 | XMS_ITS | Encounter Summary ---
Author Organization [employer] Address [address] [facility] 7[address] [place] [address] Care Team Providers Care Nut Blanker Operator Name Role Phone Unavailable Primary Care Provider Unavailabl e Encounter Details Date Type Department Care Team (Latest Contact Info) Description 07/09/2021 Abstract [facility] CONVERSIONS Dental, Provider, DDS Social History [...] Description 02/15/2025 3:00 PM EDT Office Visit [facility] ADULT DENTAL [address] [place] [address] Ijeoma Olvera documented as of this encounter Visit Diagnoses Not on filedocumented in this encounter
--- OUTSIDE RECORDS SUMMARY | 2024-09-14 15:45 | XMS_ITS | Clinical Summary ---
Author Organization [employer] Address [address] [facility] 7t [place] [address] Care Team Providers Care Rehabilitation Counsellor Name Role Phone Unavailable Primary Care Provider Unavailabl e Allergies No known active allergies Medications Hydroxychloroqu ine Sulfate 100 MG tablet Active lisinopril (Qbrelis) 1 mg/mL oral solution Take by mouth. Activ e lisinopril 20 MG tablet Take 20 mg by mouth in the morning. 3 Active hydroCHLOROthia zide (HYDRODiuril) 12.5 MG tablet Take 12.5 mg by mouth in the morning. 3 Active atorvastatin (Lipitor) 10 MG tablet 3 Active triamcinolone (Kenalog) 0.5 % cream Apply topically 2 times daily. 2 Active Acetaminophen Extra Strength 500 MG tablet 2 TABLETS BY MOUTH EVERY 6 HOURS NEEDED FOR PAIN 4 Active lisinopril-hydr oCHLOROthiazide 20-12.5 MG tablet TOME 1 TABLETA POR V A ORAL TODOS LOS D 4 Active trimethoprim-po lymyxin b (Polytrim) ophthalmic solution INSTILL 1 DROP INTO BOTH EYES 4 TIMES A DAY FOR 7 DAYS WHILE AWAKE 4 Active Active Problems Problem Noted Date Diagnosed Date Encounter for screening for malignant neoplasm o f colon 06/03/2024 Lupus anticoagulant syndrome 02/02/2024 Hypo-osmolality and hyponatremia 02/02/2024 Essential hypertension 02/02/2024 Chronic kidney disease, stage 2 (mild) 4 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 05/15/2021 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 Encounters Date Type Department Care Team Description 08/17/2024 3:00 PM EST Office Visit [facility] ADULT D[facility]AL [address] [place], [place] [id number] Ijeoma Olvera 07/04/2024 2:00 PM EST Office Visit [facility] ADULT DENTAL [address] [place] [address] MartinezGaurav mayfieldsamantha 06/30/2024 2:30 PM EST Office Visit [facility] ADULT DENTAL [address] [place] [address] Michelle Fedehusseinsamantha 06/21/2024 3:00 PM EST Office Visit [facility] ADULT D[facility] [address] [place] [address] Ijeoma Olvera Dental calculus (Primary Dx) from Last 3 Months Social History Tobacco Use Types Packs/Day Years Used Date Smoking Tobacco: Never Passive Smoke Exposure: Never Smokeless Tobacco: Never Tobacco Cessation:Counseling Given: Not Answered Alcohol Use Standard Drinks/Week Comments Never 0 (1 standard drink = 0.6 oz pur e alcohol) Comments Unknown Sex and Gender Information Value Date Recorded Sex Assigned at Female 06/09/2022 10:15 AM EDT Legal Sex Female 10:15 AM EDT Gender Identity Female 12/30/2022 3:07 PM EDT Sexual Orientation Straight 12/30/2022 3: 07 PM EDT Last Filed Vital Signs Vital Sign Reading Time Taken Comments Blood Pressure 126/82 08/17/2024 2:51 PM EST Pulse 70 06/30/2024 2:55 PM EST Temperature - - Respiratory Rate - - Oxygen Saturation - - Inhaled Oxygen Concentration - - Weight - - Height - - Body Mass Index - - Plan of Treatment Upcoming Encounters Date Type Department Care Team (Late st Contact Info) Description 02/15/2025 3:00 PM EDT Office Visit [facility] ADULT DENT[facility] [address] [place] [address] Ijeoma Olvera Health Maintenance Due Date Last Done Comments CT Colonography 1963 Colonoscopy 1963 Colorectal Cancer Screening 1963 Depression Screening 1963 FIT DNA/Cologuard 1963 FIT 1963 FOBT 1963 HIV Screening 1963 Lipid Panel 1963 SDOH Screening 1963 Sigmoidoscopy 1963 Alcohol/Substance Use Screening 1975 Hepatitis C Screening 11/22/1981 DTaP/Tdap/Td Vaccines (1 - Tdap) 11/22/1982 Pap Smear 11/22/1984 Cervical Cancer Screening 11/22/1993 HPV/Cotest 11/22/1993 Mammogram 2003 Pneumococcal Vaccine: 50+ Years (2 of 2 - PCV) 08/05/2018 08/05/2017 COVID-19 Vaccine ( season) 2024 07/27/2023, 03/06/2022, 10/01/2021, Additional history exists Dental X-Ray: Full Mouth 06/26/2024 06/25/2021 Dental Oral Exam 12/03/2024 06/03/2024, , 06/25/2021, Additional history exists Dental Prophylaxis 02/15/2025 08/17/2024, 0 02/04/2024, 12/30/2022, Additional history exists Dental X-Ray: Bitewings 06/04/2025 06/03/20 24, 02/04/2024, 01/22/2023, Additional history exists Tobacco Screening 08/17/2025 08/17/2024 RSV Patients and Patients Aged 60 years or older (1 - 1-dose 75+ series) 11/22/2038 Pneumococcal Vaccine: Pediatrics (0 to 5 Years) and At-Risk Patients (6 to 49) Years) Aged Out 08/05/2017 No longer eligible based on patient's age to complete this topic Zoster Vaccines Completed 01/20/2024, 11/17/2023 Influenza Vaccine Completed 04/21/2024, , 05/21/2022, Additional history exists HIB Vaccines Aged Out No longer eligi ble based on patient's age to complete this topic HPV Vaccines Aged Out No longer eligi ble based on patient's age to complete this topic Hepatitis A Vaccines Aged Out No long er eligible based on patient's age to complete this topic Hepatitis B Vaccines Aged Out No long er eligible based on patient's age to complete this topic IPV Vaccines Aged Out No longer eligi ble based on patient's age to complete this topic Meningococcal Vaccine Aged Out No shyam ash eligible based on patient's age to complete this topic RSV under 20 months Aged Out No longe r eligible based on patient's age to complete this topic Rotavirus Vaccines Aged Out No longer eligible based on patient's age to complete this topic Procedures Procedure Name Priority Date/Time Associated Diagnosis Comments PROPHYLAXIS - ADULT Routine 08/17/2024 3 :00 PM EST ORAL HYGIENE INSTRUCTIONS Routine 2024 3:00 PM EST ADJUNCTIVE GENERAL SERVICES - PROFESSIONAL VISITS - CASE PRESENTATION, SUBSEQUENT TO DETAILED AND EXTENSIVE TREATMENT PLANNING Routine 08/17/2024 3:00 PM EST 30 B(V) RESTORATIVE - RESIN-BASED COMPOSITE RESTORATIONS - DIRECT - RESIN-BASED COMPOSITE - ONE SURFACE, POSTERIOR Routine 07/04/2024 2:00 PM EST 29 B(V) RESTORATIVE - RESIN-BASED COMPOSITE RESTORATIONS - DIRECT - RESIN-BASED COMPOSITE - ONE SURFACE, POSTERIOR Routine 07/04/2024 2:00 PM EST 28 B(V) RESTORATIVE - RESIN-BASED COMPOSITE RESTORATIONS - DIRECT - RESIN-BASED COMPOSITE - ONE SURFACE, POSTERIOR Routine 07/04/2024 2:00 PM EST ADJUNCTIVE GENERAL SERVICES - PROFESSIONAL VISITS - CASE PRESENTATION, SUBSEQUENT TO DETAILED AND EXTENSIVE TREATMENT PLANNING Routine 07/04/2024 2:00 PM EST ADJUNCTIVE GENERAL SERVICES - PROFESSIONAL VISITS - CASE PRESENTATION, SUBSEQUENT TO DETAILED AND EXTENSIVE TREATMENT PLANNING Routine 06/30/2024 2:30 PM EST 13 DB(V)L RESTORATIVE - RESIN-BASED COMPOSITE RESTORATIONS - DIRECT - RESIN-BASED COMPOSITE - THREE SURFACES, POSTERIOR Routine 06/30/2024 2:30 PM EST 12 BB(V) RESTORATIVE - RESIN-BASED COMPOSITE RESTORATIONS - DIRECT - RESIN-BASED COMPOSITE - ONE SURFACE, POSTERIOR Routine 06/30/2024 2:30 PM EST ORAL HYGIENE INSTRUCTIONS Routine 2023 3:00 PM EST ADJUNCTIVE GENERAL SERVICES - PROFESSIONAL VISITS - CASE PRESENTATION, SUBSEQUENT TO DETAILED AND EXTENSIVE TREATMENT PLANNING Routine 06/21/2024 3:00 PM EST LR PERIODONTAL SCALING AND ROOT PLANING - 1 TO 3 TEETH PER QUADRANT Routine 06/21/2024 3:00 PM EST LL PERIODONTAL SCALING AND ROOT PLANING - 1 TO 3 TEETH PER QUADRANT Routine 06/21/2024 3:00 PM EST BITEWINGS - 4 RADIOGRAPHIC IMAGES Routine 06/03/2024 3:00 PM EDT PERIODIC ORAL EVALUATION - ESTABLISHED PATIENT Routine 06/03/2024 3:00 PM EDT DIAGNOSTIC - DIAGNOSTIC IMAGING - INTRAORAL - COMPREHENSIVE SERIES OF RADIOGRAPHIC IMAGES Routine 06/25/2021 12:00 AM EST from Last 3 Months or Most Recently Relevant to Health Maintenance Insurance DENTAL - HSN PARTIAL (MEDICAID) [place] [id number] [place] [address] [place] [address]
--- OUTSIDE RECORDS SUMMARY | 2024-09-14 15:45 | XMS_ITS | Clinical Summary ---
Author Organization [facility] Address [address] [place] [address] Phone Care Team Providers Care Business Operations Specialist Name Role Phone Monica Anaya MD Primary Care Provider [phone] Allergies No known active allergies Medications hydroxychloroqu ine (PLAQUENIL) 200 MG tablet Take 200 mg by mouth in the morning and 200 mg in the evening. 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 [address] [facility] [address] [place] [address] Octavio Fairchild MD Chronic kidney disease, stage 4 (severe) (HCC) (Primary Dx); Anemia in chronic kidney disease; Hyperkalemia; Hypertension from Last 3 Months Family History Medical History Relation Comments Hypertension Father Stroke Father Relation Status Comments Father Social History Tobacco Use Types Packs/Day Years Used Date Smoking Tobacco: Never Smokeless Tobacco: Never Tobacco Cessation:Counseling Given: Not Answered Alcohol Use Standard Drinks/Week Comments Never 0 (1 standard drink = 0.6 oz pur e alcohol) Comments Unknown Sex and Gender Information Value Date Recorded Sex Assigned at Not on file Legal Sex Female 8:59 AM EDT Gender Identity Not on file Sexual Orientation Not on file Last Filed Vital Signs Vital Sign Reading Time Taken Comments Blood Pressure 118/65 02/02/2024 2:30 PM EDT Pulse 77 02/02/2024 2:30 PM EDT Temperature - - Respiratory Rate - - Oxygen Saturation 98% 02/02/2024 2:30 PM EDT Inhaled Oxygen Concentration - - Weight 74.7 kg (164 lb 9.6 oz) 02/02/2024 2:30 P M EDT Height - - Body Mass Index - - Plan of Treatment Upcoming Encounters Date Type Department Care Team (Late st Contact Info) Description 12/05/2024 10:30 AM EDT Office Visit [facility] [address] [phone] Octavio Fairchild MD [address] [address] Health Maintenance Due Date Last Done Comments Breast Cancer Screening 1965 Pneumococcal Vaccine: Pediat rics (0 to 5 Years) and At-Risk Patients (6 to 64 Years) (1 of 2 - PCV) 11/22/1969 Colorectal Cancer Screening: Annual FOBT 11/22/2012 Colorectal Cancer Screening: Colonoscopy 11/22/2012 Colorectal Cancer Screening: Sigmoidoscopy 11/22/2012 Influenza Vaccine (#1) 2024 Hepatitis B Vaccine Aged Out No longe r eligible based on patient's age to complete this topic Care Teams Business Operations Specialist Relationship Specialty Start Date End Date Monica Anaya MD [address] [place] [address] PCP - General Internal Medicine 03/20/21
--- OUTSIDE RECORDS SUMMARY | 2024-09-14 15:45 | XMS_ITS | Encounter Summary ---
Author Organization [employer] Address [address] [facility] 7t [place] [address] Care Team Providers Care Rehab Aid Name Role Phone Unavailable Primary Care Provider Unavailabl e Reason for Visit * Reason Comments Routine Cleaning Dental Exam Encounter Details Date Type Department Care Team (Late st Contact Info) Description 08/17/2024 3:00 PM EST Office Visit [facility] ADULT DENTAL [address] [place] [address] Ijeoma Olvera Social History Tobacco Use Types Packs/Day Years Used Date Smoking Tobacco: Never Passive Smoke Exposure: Never Smokeless Tobacco: Never Alcohol Use Standard Drinks/Week Comments Never 0 (1 standard drink = 0.6 oz pur e alcohol) Comments Unknown Sex and Gender Information Value Date Recorded Sex Assigned at Female 06/09/2022 10:15 AM EDT Legal Sex Female 10:15 AM EDT Gender Identity Female 12/30/2022 3:07 PM EDT Sexual Orientation Straight 12/30/2022 3: 07 PM EDT documented as of this encounter Last Filed Vital Signs Vital Sign Reading Time Taken Comments Blood Pressure 126/82 08/17/2024 2:51 PM EST Pulse - - Temperature - - Respiratory Rate - - Oxygen Saturation - - Inhaled Oxygen Concentration - - Weight - - Height - - Body Mass Index - - documented in this encounter Progress Notes * Ijeoma Olvera - 08/17/2024 3:00 PM EST Patient ID: Mala Snyder is a 58 y.o. female. Time Out: Timeout Date: 08/17/24, Timeout Time: 1453 Location: [facility] Tooth: Maxilla and Mandible Procedure: Exam and Prophylaxis Verified the above with patient, assistant vice president, and provider. Confirmed via patient's chart, intraorally and by radiographs. Public Relations Analyst: not applicable Medical Hx: Vitals: Blood pressure 126/82. Medications, Med Hx reviewed with patient and updated in chart. Treatment Provided Dental procedures in this visit D1110 - PROPHYLAXIS - ADULT (Completed) Service provider: Ijeoma Doyle provider: Elsy Martinez [id number] - CASE PRESENTATION, DETAILED AND EXTENSIVE TREATMENT PLANNING (Completed) Service provider: Ijeoma Doyle provider: Elsy Martinez [id number] - ORAL HYGIENE INSTRUCTIONS (Completed) Service provider: Ijeoma Doyle provider: Elsy Martinez Instruments Used: Ultrasonic Scalers and Prophy angle Fluoride: N/A Oral Cancer Screening: No lesions Head/Neck Exam: No Lesions Calculus: Light and Generalized Plaque: Light and Generalized Stain: None Bleeding: Light and Localized Gingiva: Healthy and Recession- generalized OH: Good Perio Chart: Not Completed Oral hygiene instructions provided to patient including brushing technique and flossing. Recommendations: [place] two times daily, modified cornejo technique, Floss daily, Electric toothbrush, Soft bristle toothbrush, [place] Tongue, Anti-sensitivity toothpaste Recall Frequency: 6 mo NV: 6 [facility] Hygienist: Ijeoma Olvera RDH documented in this encounter Plan of Treatment Upcoming Encounters Date Type Department Care Team (Late st Contact Info) Description 02/15/2025 3:00 PM EDT Office Visit [facility] ADULT DENTAL [address] [place] [address] Ijeoma Olvera Scheduled Orders Name Type Priority Associated Diagnoses Orde r Schedule PROPHYLAXIS - ADULT Dental Routine 1 Occ urrences starting 08/17/2024 documented as of this encounter Procedures Procedure Name Priority Date/Time Associated Diagnosis Comments PROPHYLAXIS - ADULT Routine 08/17/2024 3 :00 PM EST ORAL HYGIENE INSTRUCTIONS Routine 2024 3:00 PM EST ADJUNCTIVE GENERAL SERVICES - PROFESSIONAL VISITS - CASE PRESENTATION, SUBSEQUENT TO DETAILED AND EXTENSIVE TREATMENT PLANNING Routine 08/17/2024 3:00 PM EST documented in this encounter Visit Diagnoses Not on filedocumented in this encounter
[2024-09-14 15:57] LABS: Alanine Aminotransferase 24 U/L (0-31); Albumin Level 4.1 g/dL (3.5-5.0); Anion Gap 11 (12-20); Aspartate Amino Transferase 26 U/L (5-31); Bilirubin Total 0.4 mg/dL (0.0-1.0); Blood Urea Nitrogen 13 mg/dL (9-16); Calcium 9.2 mg/dL (8.4-10.2); Carbon Dioxide 28 mmol/L (22-29); Chloride 102 mmol/L (96-108); Estimated Glomerular Filt Rate > 60; Glucose Random 94 mg/dL (60-115); Sodium 137 mmol/L (135-145); Total Protein 7.8 g/dL (6.5-8.0)
[2024-09-14 16:31] LABS: Alkaline Phosphatase 74 U/L (39-117)
== END 2024-09-14 14:35 | disposition home or self-care (01) ==
LOC: HO.LAB 14:34
PROVIDERS: PCP Internal Medicine; Visit Provider Internal Medicine Gastroenterology
DX: E87.1 Hypo-osmolality and hyponatremia (principal)
CPT/HCPCS: 36415; 80053; 85025; 85610

== ENCOUNTER 2024-09-16 09:56 | Day surgery (SDC) | payer OTHER, SELFPAY ==
[2024-09-14 15:26] VITALS: BMI 29.4
--- NOTE | 2024-09-15 10:48 | HO.ANESPROP2 ---
HPI - Anesthesia Eval Consult details Narrative: 58yo F for Colonoscopy SLE - on plaquenil - pancytopenia on recent labs PMFSH Active Problems Active Problems: All Active Problems Hyponatremia (Acute) Well woman exam (no gynecological exam) (Acute) Psychogenic vaginismus (Acute) Yeast infection of the vagina (Acute) Cervical cancer screening (Acute) Well woman exam with routine gynecological exam (Acute) Past Medical History Medical History (Updated 09/14/24 @ 15:33 by Ana Laura Walton RN) Lupus Hyperlipemia HTN (hypertension) Surgical History Surgical History (Updated 03/29/24 @ 11:12 by SHANA Thacker) Hx of colonoscopy S/P hernia surgery Hx of section Social History Social History Alcohol intake: never Patient Tobacco Use Status: Never used Tobacco Gender identity: Female Meds Allergies Allergy/AdvReac Type Severity Reaction Status Date / Time No Known Allergies Allergy Verified 03/29/24 11:12 Home Medications ?Medication ?Instructions ?Recorded ?Confirmed ?Last Taken ?Type atorvastatin 10 mg tablet 10 mg PO DAILY 01/22/22 09/14/24 Unknown History hydroxychloroquine 200 mg tablet 200 mg PO BID 01/22/22 09/14/24 Unknown History lisinopril 20 1 tab PO DAILY 09/30/23 09/14/24 Unknown History mg-hydrochlorothiazide 12.5 mg tablet triamcinolone acetonide 0.5 % 1 appl topical DAILY 09/30/23 09/14/24 Unknown History topical cream Exam Height,Weight and Vital Signs: Height 5 ft 2 in Weight 73.028 kg Pertinent Lab Results Pertinent Lab Results: Laboratory Tests 09/14/24 14:45 WBC 2.7 L Hgb 11.7 L Hct 35.9 L Plt Count 149 L Sodium 137 Potassium 4.0 Chloride 102 Carbon Dioxide 28 BUN 13 Creatinine 0.75 Laboratory Tests 09/14/24 14:45 PT 11.5 INR 1.0 Assessment and Plan Assessment Anesthesia Assessment: Chart Reviewed
--- NOTE | 2024-09-16 10:04 | P.HPSUR_ITS ---
Pre-Procedural Eval Section A - 24 Hr Update-Section A only Date of Service: 09/16/24 The patient is an INPATIENT: No The patient has been examined within 24 hours of the surgical procedure. The History & Physical has been completed within 30 days and I have reviewed it.: No Section B - Complete if H&P > 30 days Chief Complaint: screening Relevant Family History (Specify if Yes): No Relevant Social History: None Present Medications: see Short Stay Collaborative assessment Medical History: Significant History (Lupus Hyperlipemia delivery deliv ered HTN (hypertension)) History of Previous Operations: Relevant previous surgery/procedure and date(s) (Hx of colonoscopy S/P hernia surgery Hx of section) Allergies: Allergies Allergy/AdvReac Type Severity Reaction Status Date / Time No Known Allergies Allergy Verified 03/29/24 11:12 Review of Systems Sugical H&P ROS: Negative: Constitution, Cardiovascular, Respiratory and Gastrointestinal Exam Surgical H&P Exam: Normal: Heart, Normal: Lungs and Normal: Abdomen Plan Diagnosis/Plan: Unchanged I have reviewed the history and physical and performed a pertinent physical examination on my patient. No changes have occurred unless specified. Time Spent With Patient Time: Total time managing care of this patient today ____ minutes.
[2024-09-16] MEDS: Lactated Ringers 1,000 ML 100 ML IVCONT (10:08)
[2024-09-16 10:21] VITALS: BP 122/76; PULSE 79; RESP 18; TEMP 36.7; O2SAT 99
--- OUTSIDE RECORDS SUMMARY | 2024-09-16 10:42 | XMS_ITS | Patient Health Record ---
Author Organization [facility] Address [address] [place] [address] Care Team Providers Care Road Conductor Name Role Phone Isabella Jones Primary Care Provider Unavailab Travis Norris Unavailable [phone] David Rowan Unavailable Unavailable REASON FOR REFERRAL No Information MEDICATIONS Medication SIG (Take, Route, Frequency, Duration) Notes Start Date End Date Status Colyte with Flavor Packs 227.1 GM As directed Orally As directed for 1 day(s) 09/21/2013 Active Iron Active Vitamin D Active Vitamin C Active SOCIAL HISTORY Sex Assigned At : Social History Observation Description Sex Assigned At Unknown PROBLEMS Problem Type ICD Code Onset Dates Problem Status W/U Status Risk SNOMED Code Notes Problem Colon cancer screening (V76.51) Active confirmed Colon cancer screening (608966275) Problem Encounter for long-term (current) use of other medications (V58.69) Active confirmed Long-term current use of drug therapy (673761952) PLAN OF TREATMENT Future Test Test Name Order Date COLONOSCOPY 09/21/2013 Insurance Providers Payer Name Payer Address Payer Phone Subscriber Number Group Number Insured Name Patient Relationship to Insured Coverage Start Date Coverage End Date MEDICAID OF [employer] [address] [place] [address] [id number] IVETTE GUSMAN Self - patient is the insured MEDICAL (GENERAL) HISTORY Medical History History ICD Code Denies VA,DM,CVA,Lung disease,renal dise ase previous iron deficiency anemia, followe d by Dr. Rowan Surgical History Surgery Date(Month/Year) section hernia repair
--- OUTSIDE RECORDS SUMMARY | 2024-09-16 10:42 | XMS_ITS | Clinical Summary ---
Author Organization [facility] Address [address] [place] [address] Phone Care Team Providers Care Cloth Bale Header Name Role Phone Monica Anaya MD Primary Care Provider [phone]- [phone] Allergies No known active allergies Medications hydroxychloroqu [...] Orders Only [facility] [address] [facility] [address] [place] [address] Octavio Fairchild MD Chronic kidney disease, stage [...] Visit [facility] [address] [phone] Octavio Fairchild MD [address] [phone] Health Maintenance Due Date Last [...] age to complete this topic Care Teams Cloth Bale Header Relationship Specialty Start Date End Date Monica Anaya MD [address] [place] [address] PCP - General Internal Medicine 03/20/21
--- NOTE | 2024-09-16 11:00 | P.CONAN_ITS ---
PMFSH Active Problems Active Problems: All Active Problems Hyponatremia (Acute) Well woman exam (no gynecological exam) (Acute) Psychogenic vaginismus (Acute) Yeast infection of the vagina (Acute) Cervical cancer screening (Acute) Well woman exam with routine gynecological exam (Acute) Past Medical History Medical History Lupus Hyperlipemia HTN (hypertension) Functional capacity: independent ambulation Patient : No Family History Family history of problems with anesthesia: No Surgical History Surgical History Hx of colonoscopy S/P hernia surgery Hx of section History of Problems with Anesthesia: No Social History Social History Are you a primary assistant child care teacher to a significant other at home: No Do you presently have visiting nurse or other home services: No Alcohol intake: never Patient Tobacco Use Status: Never used Tobacco Have you been hit, kicked, punched, or otherwise hurt by someone within the past year? If so, by whom?: No Are you DNR?: No Advance Directives: No Advance Directives Information Provided: Yes Recently lost weight without trying: No Nutrition Risks: No Nutritional Risk Gender identity: Female Meds Allergies Allergy/AdvReac Type Severity Reaction Status Date / Time No Known Allergies Allergy Verified 09/16/24 10:29 Active Medications: Current Medications Lactated Ringer's (Lr) 1,000 mls @ 100 mls/hr IVCONT .Q10H DANIA Last Admin: 09/16/24 10:08 Dose: 100 mls/hr Home Medications ?Medication ?Instructions ?Recorded ?Confirmed ?Last Taken ?Type atorvastatin 10 mg tablet 10 mg PO DAILY 01/22/22 09/14/24 Unknown History hydroxychloroquine 200 mg tablet 200 mg PO BID 01/22/22 09/14/24 Unknown History lisinopril 20 1 tab PO DAILY 09/30/23 09/14/24 Unknown History mg-hydrochlorothiazide 12.5 mg tablet triamcinolone acetonide 0.5 % 1 appl topical DAILY 09/30/23 09/14/24 Unknown History topical cream Exam Height,Weight and Vital Signs: Height 5 ft 2 in Weight 73.028 kg Last Vital Signs Temp 98.1 F 09/16/24 10:21 Pulse 79 09/16/24 10:21 Resp 18 09/16/24 10:21 BP 122/76 09/16/24 10:21 Pulse Ox 99 09/16/24 10:21 O2 Del Method Room Air 09/16/24 10:21 Airway Mallampati Class: II TM Dist: >3cm Neck ROM: Full Heart: RRR Lungs: CTA Assessment and Plan Assessment Anesthesia Assessment: Anesthesia Plan Discussed and Chart Reviewed Final Anesthetic Review Family History of Problems with Anesthesia: No History of Problems with Anesthesia: No NPO: Yes ASA Class: II Final Preanesthetic Review: Meds/Allgs Chart Reviewed, Consent Obtained/Reviewed and Anes Risks/Benef Reviewed Patient Risk: Low Procedure Risk: Low Anesthetic Plan Anesthetic Plan: MAC: Disposition: Standard PACU
--- NOTE | 2024-09-16 11:19 | HO.OPN-COLON ---
Colonoscopy Operative Note Operative Note Date of Service: 09/16/24 Narrative: COLONOSCOPY TILL CECUM WITH SNARE POLYPECTOMY Pre-op diagnosis: Colon cancer screening. Post-op diagnosis:? Colon polyp, Diverticulosis, hemorrhoids ? Endoscopist:? Pasha Espinosa MD Anesthesia:?MAC Consent: Indications for the procedure and potential complications of bleeding, perforation, reaction to medications and missed diagnosis were discussed with the patient and informed consent was obtained. Instrument: Olympus PCF H 190 L variable stiffness pediatric colonoscope Monitoring: Vital signs and clinical assessment, intermittent blood pressure monitoring, continuous EKG monitoring, Pulse oximetry and Carbon Dioxide monitoring were done throughout the procedure. Please see anesthesia flowsheet. Colon withdrawl time was 12 minutes. Procedure: The patient was placed in the left lateral decubitis position and pre-procedure medications were administered. After a digital rectal examination of the ano-rectum, the video colonoscope was inserted into the rectum and advanced through the colon to the cecum. The colonoscope was slowly withdrawn in a retrograde panoramic fashion and the colon mucosa was carefully examined including a retroflexed view of the rectum. Findings and interventions are described below. Procedure Difficulty: without difficulty Findings: Terminal Ileum: Not evaluated Cecum: Normal Ascending Colon: 7-8 mm sessile polyp along the distal lip of ICV - removed with a cold snare Moderate diverticulosis throughout the entire colon Transverse Colon: Moderate diverticulosis throughout the entire colon Descending Colon: Moderate diverticulosis throughout the entire colon Sigmoid Colon: Moderate diverticulosis Rectum: Normal Ano-rectum: Small internal hemorrhoids Colon preparation: Excellent after some irrigation. Temple Bowel Preparation Scale Right colon; 3 Transverse colon: 3 Left colon; 3 (0 = Unprepared colon segment with mucosa not seen due to solid stool that cannot be cleared. 1 = Portion of mucosa of the colon segment seen, but other areas of the colon segment not well seen due to staining, residual stool and/or opaque liquid. 2 = Minor amount of residual staining, small fragments of stool and/or opaque liquid, but mucosa of colon segment seen well. 3 = Entire mucosa of colon segment seen well with no residual staining, small fragments of stool or opaque liquid) Impression and Post Procedure Diagnosis: Colonoscopy Findings: One small polyp was removed Moderate diverticulosis seen in the entire colon Small hemorrhoids on retroflexed exam. Plan: Pt has a FU appointment on 09/30/24 with Renu Mittal NP Repeat Colonoscopy in 5 years if polyps are adenomatous and 10 year if polyps are hyperplastic. Above findings were reviewed with the patient and relevant handouts were given and the discharge area.
[2024-09-16 11:24] VITALS: BP 91/57; PULSE 67; RESP 16; TEMP 36.1; O2SAT 100
[2024-09-16 11:39] VITALS: BP 110/60; PULSE 59; RESP 16; TEMP 36.1; O2SAT 100
--- NOTE | 2024-09-16 11:44 | HO.POSTANES ---
Post Anesthesia Evaluation Post Anesthesia Evaluation Date of Service: 09/16/24 Vital Signs: Vital Signs Temp Pulse Resp BP Pulse Ox O2 Del Method 09/16/24 11:24 97 F 67 16 91/57 L 100 Room Air 09/16/24 10:21 98.1 F 79 18 122/76 99 Room Air Anesthesia: Monitored Mental Status: Awake Pain Control: Satisfactory Nausea/Vomiting: None Hydration: Adequate Anesthesia-Related Issues: No Anes. Related Issues
--- NOTE | 2024-09-16 13:01 | HO.POSTANES ---
Post Anesthesia Evaluation Post Anesthesia Evaluation Date of Service: 09/16/24 Vital Signs: Vital Signs Temp Pulse Resp BP Pulse Ox O2 Del Method 09/16/24 11:39 97 F 59 16 110/60 100 Room Air 09/16/24 11:24 97 F 67 16 91/57 L 100 Room Air 09/16/24 10:21 98.1 F 79 18 122/76 99 Room Air Anesthesia: Monitored Mental Status: Awake Pain Control: Satisfactory Nausea/Vomiting: None Hydration: Adequate Anesthesia-Related Issues: No Anes. Related Issues
== END 2024-09-16 12:47 | disposition home or self-care (01) ==
PROVIDERS: PCP Internal Medicine; Visit Provider Internal Medicine Gastroenterology
PROC: 0DJD8ZZ Inspection of Lower Intestinal Tract, Via Natural or Artificial Opening Endoscopic (ICD-10-PCS; CPT 45378; principal; 2024-09-16 11:50)
DX: Z12.11 Encounter for screening for malignant neoplasm of colon (principal); K63.5 Polyp of colon; K57.30 Diverticulosis of large intestine without perforation or abscess without bleeding; K64.8 Other hemorrhoids; E78.5 Hyperlipidemia, unspecified; I10 Essential (primary) hypertension; M32.9 Systemic lupus erythematosus, unspecified; Z98.890 Other specified postprocedural states; Z79.899 Other long term (current) drug therapy
CPT/HCPCS: 45385; 88305; J2003; J2704

== ENCOUNTER → 2024-09-16 09:56 | Outpatient (BNV) | payer OTHER, SELFPAY | PROVIDERS: PCP Internal Medicine; Visit Provider Internal Medicine Gastroenterology | DX: Z12.11 Encounter for screening for malignant neoplasm of colon (principal); K63.5 Polyp of colon; K57.90 Diverticulosis of intestine, part unspecified, without perforation or abscess without bleeding; K64.8 Other hemorrhoids | CPT/HCPCS: 45385 ==

== ENCOUNTER 2024-10-15 09:26 | Outpatient (REF) | payer OTHER, SELFPAY ==
--- OUTSIDE RECORDS SUMMARY | 2024-10-15 09:32 | XMS_ITS | Encounter Summary ---
Author Organization [employer] Address [address] 7t [place] [address] Care Team Providers Care Rn Correctional Name Role Phone Unavailable Primary Care Provider Unavailabl e Encounter Details Date Type Department Care Team (Latest Contact Info) Description 07/09/2021 Abstract [facility] CONVERSIONS Dental, Provider, DDS Social History Tobacco [...] Description 02/15/2025 3:00 PM EDT Office Visit [facility] CHC ADULT DENTAL [address] [place] [address] Ijeoma Olvera documented as of this encounter Visit Diagnoses Not on filedocumented in this encounter
--- OUTSIDE RECORDS SUMMARY | 2024-10-15 09:33 | XMS_ITS | Clinical Summary ---
Author Organization [employer] Address [address] 7t [place] [address] Care Team Providers Care Nib Adjuster Name Role Phone Unavailable Primary Care Provider [...] Description 08/17/2024 3:00 PM EST Office Visit [facility] ADULT DENTAL [address] [place], [place] [id number] Ijeoma Olvera from Last 3 Months Social History Tobacco [...] Description 02/15/2025 3:00 PM EDT Office Visit [facility] ADULT DENTAL [address] [place] [id number] Ijeoma Olvera Health Maintenance Due Date Last [...] Additional history exists Dental X-Ray: Bitewings 06/04/2025 06/03/20, 02/04/2024, 01/22/2023, Additional history exists Tobacco Screening [...] HYGIENE INSTRUCTIONS Routine 2024 3:00 PM EST CASE PRESENTATION, DETAILED AND EXTENSIVE TREATMENT PLANNING Routine 08/17/2024 3:00 PM EST BITEWINGS - 4 RADIOGRAPHIC IMAGES Routine 06/03/2024 3:00 PM EDT PERIODIC ORAL EVALUATION - ESTABLISHED PATIENT Routine 06/03/2024 3:00 PM EDT INTRAORAL - COMPLETE SERIES OF RADIOGRAPHIC IMAGES Routine 06/25/2021 12:00 AM EST from Last 3 Months or Most Recently Relevant to Health Maintenance Insurance DENTAL - HSN PARTIAL (MEDICAID)
--- OUTSIDE RECORDS SUMMARY | 2024-10-15 09:33 | XMS_ITS | Patient Health Record ---
Author Organization [employer] Address [address] [place] [address] Care Team Providers Care Occupational Therapy Manager Name Role Phone Isabella Jones Primary Care Provider Unavailab Travis Norris Unavailable [phone] David Rowan Unavailable Unavailable Reason For Referral No Information Medications Medication SIG (Take, Route, Frequency, Duration) Notes Start Date End Date Status Colyte with Flavor Packs 227.1 GM As directed Orally As directed for 1 day(s) 09/21/2013 Active Iron Active Vitamin D Active Vitamin C Active Problems Problem Type SNOMED Code ICD Code Onset Dates Problem Status W/U Status Risk Notes Problem Long-term current use of drug therapy (454301441) Encounter for long-term (current) use of other medications (V58.69) Active confirmed Problem Colon cancer screening (111757899) Colon cancer screening (V76.51) Active confirmed Plan Of Treatment Future Test Test Name Order Date COLONOSCOPY 09/21/2013 Insurance Providers Payer Name Payer Address Payer Phone Subscriber Number Group Number Insured Name Patient Relationship to Insured Coverage Start Date Coverage End Date MEDICAID OF [facility] [address] [place] [address] [id number] IVETTE GUSMAN Self - patient is the insured Medical (General) History Medical History History ICD Code Denies [place],DM,CVA,Lung disease,renal dise ase previous iron deficiency anemia, followe d by Dr. Rowan Surgical History Surgery Date(Month/Year) section hernia repair
--- OUTSIDE RECORDS SUMMARY | 2024-10-15 09:33 | XMS_ITS | Clinical Summary ---
Author Organization [facility] Address [address] [place] [address] Phone Care Team Providers Care Licensed Journeyman Electrician Name Role Phone Monica Anaya MD Primary Care Provider [phone] Allergies No known active allergies Medications hydroxychloroqu [...] Orders Only [facility] [address] [facility] [address] [place] [address] Octavio Fairchild MD Chronic kidney disease, stage [...] Visit [facility] [address] [phone] Octavio Fairchild MD [address] [phone] Health Maintenance Due Date Last [...] age to complete this topic Care Teams Licensed Journeyman Electrician Relationship Specialty Start Date End Date Monica Anaya MD [address] [place] [address] PCP - General Internal Medicine 03/20/21
[2024-10-15 11:03] LABS: Basophils Percent Auto 0.4 % (0-2); Eosinophils Absolute Auto 0.2 X10*3/uL (0.0-0.4); Hematocrit 35.9 % (37.0-47.0); Hemoglobin 11.5 g/dl (12.0-16.0); Imm Gran Abs Auto 0.01 X10*3/uL (0.00-0.03); Imm Gran Pct Auto 0.4 % (0.0-0.4); Lymphocytes Absolute Auto 0.8 X10*3/uL (1.2-4.9); Lymphocytes Percent Auto 35.7 % (20-40); Mean Corpuscular Hemoglobin 28.3 pg (27.0-33.0); Mean Corpuscular Volume 88.2 fL (80.0-98.0); Monocytes Absolute Auto 0.3 X10*3/uL (0.1-1.2); Monocytes Percent Auto 13.8 % (2-11); Neutrophils Absolute Auto 0.9 x10*3/uL (2.0-8.3); Neutrophils Percent Auto 41.7 % (45-73); Platelet Count 127 X10*3/uL (160-400); Red Blood Count 4.07 X10*6/uL (4.20-5.50); Red Cell Distribution Width 12.8 % (11.0-16.0); White Blood Count 2.2 X10*3/uL (4.8-10.8)
[2024-10-15 11:04] LABS: MANUAL DIFF FLAG SCAN
[2024-10-15 11:33] LABS: SLIDE REVIEW VERIFIED
[2024-10-15 12:06] LABS: Creatinine Urine 61.18 mg/dL; Total Protein Urine Random < 7 mg/dL (<12)
[2024-10-15 12:07] LABS: Alanine Aminotransferase 24 U/L (0-31); Albumin Level 3.9 g/dL (3.5-5.0); Alkaline Phosphatase 69 U/L (39-117); Anion Gap 9 (12-20); Aspartate Amino Transferase 23 U/L (5-31); Bilirubin Total 0.7 mg/dL (0.0-1.0); Blood Urea Nitrogen 17 mg/dL (9-16); Calcium 9.2 mg/dL (8.4-10.2); Carbon Dioxide 29 mmol/L (22-29); Chloride 106 mmol/L (96-108); Cholesterol 140 mg/dL (<200); Estimated Glomerular Filt Rate > 60; Glucose Random 77 mg/dL (60-115); HDL Cholesterol 55 mg/dL (>40); LDL Cholesterol Calculated 79 mg/dL (<100); Potassium 3.9 mmol/L (3.3-5.1); Sodium 140 mmol/L (135-145); Total Protein 7.5 g/dL (6.5-8.0); Triglycerides 34 mg/dL (<150)
== END 2024-10-15 09:27 | disposition home or self-care (01) ==
LOC: HO.LAB 09:26
PROVIDERS: PCP Internal Medicine; Visit Provider Internal Medicine
DX: E78.00 Pure hypercholesterolemia, unspecified (principal); I10 Essential (primary) hypertension; M32.9 Systemic lupus erythematosus, unspecified; R80.8 Other proteinuria
CPT/HCPCS: 36415; 80053; 80061; 82570; 84156; 85025

== ENCOUNTER 2024-11-26 10:50 | Outpatient (REF) | payer OTHER, SELFPAY ==
[2024-11-26 11:00] LABS: MANUAL DIFF FLAG NO
[2024-11-26 11:05] LABS: Basophils Percent Auto 0.7 % (0-2); Eosinophils Absolute Auto 0.2 X10*3/uL (0.0-0.4); Eosinophils Percent Auto 5.6 % (0-4); Hematocrit 35.4 % (37.0-47.0); Hemoglobin 11.2 g/dl (12.0-16.0); Lymphocytes Percent Auto 35.9 % (20-40); Mean Corpuscular HGB Conc 31.6 g/dl (31.0-35.0); Mean Corpuscular Hemoglobin 28.1 pg (27.0-33.0); Mean Corpuscular Volume 88.7 fL (80.0-98.0); Mean Platelet Volume 11.5 fL (9.4-12.3); Monocytes Absolute Auto 0.4 X10*3/uL (0.1-1.2); Monocytes Percent Auto 13.4 % (2-11); Neutrophils Absolute Auto 1.3 x10*3/uL (2.0-8.3); Neutrophils Percent Auto 44.4 % (45-73); Platelet Count 146 X10*3/uL (160-400); Red Blood Count 3.99 X10*6/uL (4.20-5.50); Red Cell Distribution Width 12.7 % (11.0-16.0); White Blood Count 2.8 X10*3/uL (4.8-10.8)
[2024-11-26 11:40] LABS: Anion Gap 11 (12-20); Blood Urea Nitrogen 13 mg/dL (9-16); Calcium 9.9 mg/dL (8.4-10.2); Carbon Dioxide 28 mmol/L (22-29); Chloride 105 mmol/L (96-108); Estimated Glomerular Filt Rate > 60; Iron 75 mcg/dL (30-160); Magnesium 2.3 mg/dL (1.6-2.6); Percent Iron Saturation 36 % (15-50); Potassium 3.8 mmol/L (3.3-5.1); Sodium 140 mmol/L (135-145); Total Iron Binding Capacity 206 mcg/dL (228-428); Unsaturated Iron Binding 131 ug/dL
[2024-11-26 11:53] LABS: Creatinine Urine 48.71 mg/dL; Total Protein Urine Random < 7 mg/dL (<12)
[2024-11-26 11:57] LABS: Vitamin D 25-OH Total 45.1 ng/mL (>30)
== END 2024-11-26 10:51 | disposition home or self-care (01) ==
LOC: HO.LAB 10:50
PROVIDERS: PCP Internal Medicine; Visit Provider Internal Medicine Nephrology
DX: N18.4 Chronic kidney disease, stage 4 (severe) (principal); I10 Essential (primary) hypertension; E87.5 Hyperkalemia; D63.1 Anemia in chronic kidney disease
CPT/HCPCS: 36415; 80051; 82306; 82310; 82565; 82570; 83540; 83735; 84156; 84520; 85025

== ENCOUNTER 2024-12-19 14:19 | Outpatient (REF) | payer OTHER, SELFPAY ==
--- OUTSIDE RECORDS SUMMARY | 2024-12-19 14:34 | XMS_ITS | Clinical Summary ---
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 Social History Tobacco Use Types Packs/Day Years [...] Upcoming Encounters Date Type Department Care Team ([facility] st Contact Info) Description 02/15/2025 3:00 PM EDT Office Visit [facility] ADULT DENTAL [address] [place] [address] Ijeoma Olvera Health Maintenance Due Date Last [...] older (1 - 1-dose 75+ series) 11/22/2038 Zoster Vaccines Completed 01/20/2024, 11/17/2023 Influenza Vaccine [...] ADULT Routine 08/17/2024 3 :00 PM EST BITEWINGS - 4 RADIOGRAPHIC IMAGES Routine 06/03/2024 3:00 PM EDT PERIODIC ORAL EVALUATION - ESTABLISHED PATIENT Routine 06/03/2024 3:00 PM EDT INTRAORAL - COMPLETE SERIES OF RADIOGRAPHIC IMAGES Routine 06/25/2021 12:00 AM EST from Last 3 Months or Most Recently Relevant to [place] [address] DENTAL - HSN PARTIAL (MEDICAID)
--- OUTSIDE RECORDS SUMMARY | 2024-12-19 14:34 | XMS_ITS | Patient Health Record ---
Author Organization [facility] [facility] Address [address] [place] [address] Care Team Providers Care Fence Manufacture Supervisor Name Role Phone Isabella Jones Primary Care Provider Unavailab Travis Norris Unavailable [phone] David Rowan Unavailable Unavailable Reason For Referral [...] Problem Long-term current use of drug therapy (611426468) Encounter for long-term (current) use of other medications (V58.69) Active confirmed Problem Colon cancer screening (386992836) Colon cancer screening (V76.51) Active confirmed Plan Of Treatment Future Test Test Name Order Date COLONOSCOPY 09/21/2013 Insurance Providers Payer Name Payer Address Payer Phone Subscriber Number Group Number Insured Name Patient Relationship to Insured Coverage Start Date Coverage End Date MEDICAID OF [facility] [address] [place] [address] [id number] IVETTE GUSMAN Self - patient is the insured Medical (General) History Medical History History ICD Code Denies [place],DM,CVA,Lung disease,renal dise ase previous iron deficiency anemia, followe d by Dr. Rowan Surgical History Surgery Date(Month/Year) section hernia repair
--- OUTSIDE RECORDS SUMMARY | 2024-12-19 14:34 | XMS_ITS | Encounter Summary ---
Author Organization [employer] Address [address] [facility] [address] [place] [address] Care Team Providers Care Environmental Education Specialist Name Role Phone Unavailable Primary Care Provider Unavailabl e Encounter Details Date Type Department Care Team (Latest Contact Info) Description 03/04/2022 Abstract [facility] CONVERSIONS Dental, Provider, DDS Social History [...] Description 02/15/2025 3:00 PM EDT Office Visit [facility] CHC ADULT DENTAL [address] [place] [address] Ijeoma Olvera documented as of this encounter Visit Diagnoses Not on filedocumented in this encounter
--- OUTSIDE RECORDS SUMMARY | 2024-12-19 14:34 | XMS_ITS | Encounter Summary ---
Author Organization [employer] Address [address] [facility] [address] [place] [address] Care Team Providers Care Hydroelectric Powerplant Supervisor Name Role Phone Unavailable Primary Care Provider Unavailabl e Encounter Details Date Type Department Care Team (Latest Contact Info) Description 07/09/2021 Abstract [facility] CONVERSIONS Dental, Provider, DDS Social History [...] Description 02/15/2025 3:00 PM EDT Office Visit [facility] CHC ADULT DENTAL [address] [place] [address] Ijeoma Olvera documented as of this encounter Visit Diagnoses Not on filedocumented in this encounter
--- OUTSIDE RECORDS SUMMARY | 2024-12-19 14:34 | XMS_ITS | Clinical Summary ---
Author Organization [facility] Address [address] [place] [address] [place] [address] Phone Care Team Providers Care Power Wheelchair Mechanic Name Role Phone Monica Anaya MD Primary Care Provider [phone]- [phone] Allergies No known active allergies Medications hydroxychloroqu [...] Encounters Date Type Department Care Team Description 12/05/2024 10:30 AM EDT [facility] Visit [facility] [address] [phone] Octavio Fairchild MD Essential hypertension (Primary Dx); Chronic kidney disease, stage 2 (mild) 11/26/2024 Orders Only [facility] [place] [id number] [facility] [address] [place] [phone] Octavio Fairchild MD from Last 3 Months Family History Medical [...] Sign Reading Time Taken Comments Blood Pressure 114/60 12/05/2024 10:48 AM EDT Pulse 66 12/05/2024 10:48 AM EDT Temperature - - Respiratory Rate - - Oxygen Saturation 98% 12/05/2024 10:48 AM EDT Inhaled Oxygen Concentration - - Weight 72 kg (158 lb 12.8 oz) 12/05/2024 10:48 A M EDT Height - - Body Mass Index - - Plan of Treatment Upcoming Encounters Date Type Department Care Team (Late st Contact Info) Description 12/05/2025 1:15 PM EDT Office Visit [facility] [address] [phone] Octavio Fairchild MD [address] [phone] Health Maintenance Due Date Last Done Comments Breast Cancer Screening 1965 Pneumococcal Vaccine: 50+ Ye ars (1 of 2 - PCV) 11/22/1982 Colorectal Cancer Screening: Annual FOBT 11/22/2012 Colorectal Cancer Screening: Colonoscopy 11/22/2012 Colorectal Cancer Screening: Sigmoidoscopy 11/22/2012 Influenza Vaccine (Season Ended) 2025 Hepatitis B Vaccine Aged Out No longe r eligible based on patient's age to complete this topic Procedures Procedure Name Priority Date/Time Associated Diagnosis Comments PROTEIN / CREATININE RATIO, URINE Routine 11/26/2024 11:06 AM EDT VITAMIN D 25 HYDROXY Routine 11/26/2024 10:59 AM EDT IRON PANEL (FE, TIBC, TSAT) Routine 11/26/2024 10:59 AM EDT MAGNESIUM Routine 11/26/2024 10:59 AM EDT CALCIUM Routine 11/26/2024 10:59 AM EDT CREATININE, BLOOD Routine 11/26/2024 10: 59 AM EDT BUN Routine 11/26/2024 10:59 AM EDT ELECTROLYTE PANEL Routine 11/26/2024 10: 59 AM EDT CBC AND DIFFERENTIAL Routine 11/26/2024 10:59 AM EDT from Last 3 Months Results * Protein, Total, Random Urine w/Creatinine (Protein/Creat Ratio) (11/26/2024 11:06 AM EDT) Creatinine, Urine 48.71 mg/dL See order comments Protein Urine Random <7 <12 mg/dL See order comments Protein/Creatin ine Ratio, Urine TNP <0.2 See order comments Comment: Unable to calculate urine protein creatinine ratio due to low creatinine or protein result. 11/26/2024 11:0 6 AM EDT 11/26/2024 11:06 AM EDT us Octavio Fairchild MD LAB URINE ORDERABLES Final Re sult [place] See order comments [place] [address] * Creatinine (11/26/2024 10:59 AM EDT) Creatinine Serum 0.72 0.5 - 1.4 mg/dL See order comments eGFR (Calc) >60 See orde r comments Comment: Chronic Kidney Disease: ??Estimated GFR < 60 mL/min/1.73m2 Severe Kidney Disease: ??Estimated GFR < 15 mL/min/1.73m2 11/26/2024 10:5 9 AM EDT 11/26/2024 10:59 AM EDT us Octavio Fairchild MD LAB BLOOD ORDERABLES Final Re sult [place] See order comments [place] [address] * (ABNORMAL) Iron Panel (Fe, TIBC, TSAT) (11/26/2024 10:59 AM EDT) Iron 75 30 - 160 mcg/dL See order comments TIBC 206(L) 228 - 428 mcg/dL See order comments Iron Saturation (TSat) 36 15 - 50 % See order comments UIBC 131 ug/dL See order comments 11/26/2024 10:5 9 AM EDT 11/26/2024 10:59 AM EDT Octavio Fairchild MD LAB BLOOD ORDERABLES Final Re sult Performing Organization Address [facility] Co de Phone Number [place] See order comments [place] [address] * Vitamin D 25 Hydroxy (11/26/2024 10:59 AM EDT) Vitamin D, 25-Hydroxy 45.1 >30 ng/mL See order comments Comment: Health Based Reference Values* < 20 ??ng/mL ??Deficient 20-30 ng/mL ??Insufficient > 30 ??ng/mL ??Sufficient *Xochilt RANDHAWA. N Engl J Med. 2007;357:266-280 There is no well-established upper level of normal vitamin D levels. Some laboratories use 50 ng/mL as an upper limit of normal. However, toxicity is patient-dependent and may occur at any level. Careful correlation with the patient's presentation is necessary and, if there is concern for vitamin D toxicity, treatment should be considered irrespective of the serum level. Care must be taken in interpreting Vitamin D results from different laboratories and methodologies. ??Published data demonstrated that results from patients undergoing hemodialysis may show a negative bias when tested with various automated 25-OH vitamin D assays when compared to LC-MS/MS. When testing samples from patients whose predominant form of Vitamin D is Vitamin D2, such as patients receiving Vitamin D2 supplementation, results that are subtherapeutic should be confirmed with another method such as LC-MS/MS. 11/26/2024 10:5 9 AM EDT 11/26/2024 10:59 AM EDT us Octavio Fairchild MD LAB BLOOD ORDERABLES Final Re sult [place] See order comments [place] [address] * (ABNORMAL) CBC and Differential (11/26/2024 10:59 AM EDT) WBC 2.8(L) 4.8 - 10.8 X10*3/uL See order comments RBC 3.99(L) 4.20 - 5.50 X10*6/uL See order comments Hgb 11.2(L) 12.0 - 16.0 g/dl See order comments Hematocrit 35.4(L) 37.0 - 47.0 % See order comments MCV 88.7 80.0 - 98.0 fL See order comments MCH 28.1 27.0 - 33.0 pg See order comments MCHC 31.6 31.0 - 35.0 g/dl See order comments RDW 12.7 11.0 - 16.0 % See order comments Platelets 146(L) 160 - 400 X10*3/uL See order comments MPV 11.5 9.4 - 12.3 fL See order comments Neutrophils % Auto 44.4(L) 45 - 73 % See order comments Immature Granulocytes 0.0 0.0 - 0.4 % See order comments Lymphocytes Relative 35.9 20 - 40 % See order comments Monocytes 13.4(H) 2 - 11 % See order comments Eosinophils Relative 5.6(H) 0 - 4 % See order comments Basophils Relative 0.7 0 - 2 % See order comments nRBC Count 0.0 0.0 - 0.2 /100WBC See order comments Neutrophils Absolute 1.3(L) 2.0 - 8.3 x10*3/uL See order comments Immature Grans (Absolute) 0.00 0.00 - 0.03 X10*3/uL See order comments Lymphocytes Absolute 1.0(L) 1.2 - 4.9 X10*3/uL See order comments Monocytes Absolute 0.4 0.1 - 1.2 X10*3/uL See order comments Eosinophils Absolute 0.2 0.0 - 0.4 X10*3/uL See order comments Basophils Absolute 0.0 0.0 - 0.2 X10*3/uL See order comments NRBC Absolute 0.000 0.0 - 0.012 X10*3/uL See order comments 11/26/2024 10:5 9 AM EDT 11/26/2024 10:59 AM EDT us Octavio Fairchild MD LAB BLOOD ORDERABLES Final Re sult Performing Organization Address [facility] Phone Number [facility] See order comments [place] [address] * BUN (11/26/2024 10:59 AM EDT) BUN 13 9 - 16 mg/dL See order comments 11/26/2024 10:5 9 AM EDT 11/26/2024 10:59 AM EDT us Octavio Fairchild MD LAB BLOOD ORDERABLES Final Re sult Performing Organization Address [facility] de Phone Number [place] See order comments [place] [address] * Magnesium (11/26/2024 10:59 AM EDT) Magnesium 2.3 1.6 - 2.6 mg/dL See order comments 11/26/2024 10:5 9 AM EDT 11/26/2024 10:59 AM EDT us Octavio Fairchild MD LAB BLOOD ORDERABLES Final Re sult Performing Organization Address [facility] de Phone Number [place] See order comments [place] [address] * Calcium (11/26/2024 10:59 AM EDT) Calcium 9.9 8.4 - 10.2 mg/dL See order comments 11/26/2024 10:5 9 AM EDT 11/26/2024 10:59 AM EDT us Octavio Fairchild MD LAB BLOOD ORDERABLES Final Re sult [place] See order comments [place] [address] * (ABNORMAL) Electrolyte panel (11/26/2024 10:59 AM EDT) Sodium 140 135 - 145 mmol/L See order comments Potassium 3.8 3.3 - 5.1 mmol/L See order comments Chloride 105 96 - 108 mmol/L See order comments Bicarbonate (CO2) 28 22 - 29 mmol/L See order comments Anion Gap 11(L) 12 - 20 See order comments 11/26/2024 10:5 9 AM EDT 11/26/2024 10:59 AM EDT us Octavio Farichild MD LAB BLOOD ORDERABLES Final Re sult Performing Organization Address City/[facility]/ZIP Co de Phone Number [place] See order comments [place] [address] from Last 3 Months Insurance [facility] [address] [place] [id number] [facility] Care Teams Power Wheelchair Mechanic Relationship Specialty Start Date End Date Monica Anaya MD [address] [place] [address] PCP - General Internal Medicine 03/20/21
== END 2024-12-19 14:20 | disposition home or self-care (01) ==
LOC: HO.MAMMO 14:19
PROVIDERS: PCP Internal Medicine; Visit Provider Internal Medicine
DX: Z12.31 Encounter for screening mammogram for malignant neoplasm of breast (principal)
CPT/HCPCS: 77063; 77067

== ENCOUNTER → 2024-12-19 14:30 | Outpatient (BNV) | payer OTHER, SELFPAY | PROVIDERS: PCP Internal Medicine; Visit Provider Internal Medicine | DX: Z12.31 Encounter for screening mammogram for malignant neoplasm of breast (principal) | CPT/HCPCS: 77063; 77067 ==

== ENCOUNTER 2025-04-05 09:04 | Outpatient (AMB) | payer OTHER, SELFPAY ==
--- OUTSIDE RECORDS SUMMARY | 2025-04-05 09:29 | XMS_ITS | Encounter Summary ---
Author Organization [employer] Address [address] [place] [address] Care Team Providers Care Production Tool Engineer Name Role Phone Unavailable Primary Care Provider Unavailabl e Encounter Details Date Type Department Care Team (Latest Contact Info) Description 03/04/2022 Abstract [facility] Dental, Provider, DDS Social History Tobacco [...] Care Team (Late st Contact Info) Description 04/28/2025 2:30 PM EDT Office Visit [facility] [address] [place] [address] Hu Hernandez DMD [address] [place] [address] 08/23/2025 3:00 PM EST Office Visit [facility] [address] [place] [address] Ijeoma Olvera documented as of this encounter Visit Diagnoses Not on filedocumented in this encounter
--- OUTSIDE RECORDS SUMMARY | 2025-04-05 09:29 | XMS_ITS | Clinical Summary ---
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 Resolved Problems Problem Noted Date Diagnosed Date Resolved Date Chronic kidney disease, stage 2 (mild) 02/02/2024 02/15/2025 Encounters Date Type Department Care Team Description 02/15/2025 3:00 PM EDT Office Visit [facility] [address] [place] [address] Ijeoma Olvera Dental calculus (Primary Dx); Periodontal disease; Partial edentulism, unspecified edentulism class from Last 3 Months Social History Tobacco [...] Sign Reading Time Taken Comments Blood Pressure 128/74 02/15/2025 2:59 PM EDT Pulse 70 06/30/2024 2:55 PM EST Temperature - - Respiratory Rate - - Oxygen Saturation - - Inhaled Oxygen Concentration - - Weight - - Height - - Body Mass Index - - Plan of Treatment Upcoming Encounters Date Type Department Care Team (Late st Contact Info) Description 04/28/2025 2:30 PM EDT Office Visit [facility] [address] [place] [address] Hu Hernandez DMD [address] [place] [address] 08/23/2025 3:00 PM EST Office Visit [facility] [address] [place] [address] Ijeoma Olvera Health Maintenance Due Date Last Done Comments CT Colonography 1963 Colonoscopy 1963 Colorectal Cancer Screening 1963 Depression Screening 1963 FIT DNA/Cologuard 1963 FIT 1963 FOBT 1963 HIV Screening 1963 Lipid Panel 1963 SDOH Screening 1963 Sigmoidoscopy 1963 Disability Screening 1963 Alcohol/Substance Use Screening 1975 Hepatitis C Screening 11/22/1981 DTaP/Tdap/Td Vaccines (1 - Tdap) 11/22/1982 Pap Smear 11/22/1984 Cervical Cancer Screening 11/22/1993 HPV/Cotest 11/22/1993 Mammogram 2003 Pneumococcal Vaccine: 50+ Years (2 of 2 - PCV) 08/05/2018 08/05/2017 COVID-19 Vaccine ( season) 2024 07/27/2023, 03/06/2022, 10/01/2021, Additional history exists Dental X-Ray: Full Mouth 06/26/2024 06/25/2021 Influenza Vaccine (#1) 2025 , 05/14/2023, 05/21/2022, Additional history exists Dental Oral Exam 08/19/2025 02/15/2025, , 03/04/2022, Additional history exists Dental Prophylaxis 08/19/2025 02/15/2025, 0 08/17/2024, 02/04/2024, Additional history exists Tobacco Screening 02/15/2026 02/15/2025 Dental X-Ray: Bitewings 02/16/2026 02/16/20, 06/03/2024, 02/04/2024, Additional history exists Zoster Vaccines Completed 01/20/2024, 11/17/2023 RSV Patients and Patients Aged 60 years or older Completed 04/21/2024 HIB Vaccines Aged Out No longer eligi [...] patient's age to complete this topic Meningococcal B Vaccine Aged Out No l onger eligible based on patient's age to complete [...] Procedure Name Priority Date/Time Associated Diagnosis Comments PERIODIC ORAL EVALUATION - ESTABLISHED PATIENT Routine 02/15/2025 3:00 PM EDT Periodontal disease Partial edentulism, unspecified edentulism class INTRAORAL - PERIAPICAL EACH ADDITIONAL RADIOGRAPHIC IMAGE Routine 02/15/2025 3:00 PM EDT Periodontal disease Partial edentulism, unspecified edentulism class INTRAORAL - PERIAPICAL FIRST RADIOGRAPHIC IMAGE Routine 02/15/2025 3:00 PM EDT Periodontal disease Partial edentulism, unspecified edentulism class BITEWINGS - 4 RADIOGRAPHIC IMAGES Routine 02/15/2025 3:00 PM EDT Periodontal disease Partial edentulism, unspecified edentulism class ORAL HYGIENE INSTRUCTIONS Routine 02/15/2025 3:00 PM EDT Periodontal disease Partial edentulism, unspecified edentulism class CASE PRESENTATION, DETAILED AND EXTENSIVE TREATMENT PLANNING Routine 02/15/2025 3:00 PM EDT Periodontal disease Partial edentulism, unspecified edentulism class PROPHYLAXIS - ADULT Routine 02/15/2025 3 :00 PM EDT Periodontal disease Partial edentulism, unspecified edentulism class INTRAORAL - COMPLETE SERIES OF RADIOGRAPHIC IMAGES Routine 06/25/2021 12:00 AM EST from Last 3 Months or Most Recently Relevant [id number] DENTAL - HSN PARTIAL (MEDICAID) [address] [place] [phone]
--- OUTSIDE RECORDS SUMMARY | 2025-04-05 09:29 | XMS_ITS | Encounter Summary ---
Author Organization [employer] Address [address] [address] [place] [address] Care Team Providers Care Bandoleer Straightener Stamper Name Role Phone Unavailable Primary Care Provider Unavailabl e Encounter Details Date Type Department Care Team (Latest Contact Info) Description 07/09/2021 Abstract [facility] CONVERSIONS Dental, Provider, DDS Social History Tobacco [...] 2:30 PM EDT Office Visit [facility] [address] [place] [address] Hu Hernandez DMD [address] [place] [address] 08/23/2025 3:00 PM EST Office Visit [facility] [address] [place] [address] Ijeoma Olvera documented as of this encounter Visit Diagnoses Not on filedocumented in this encounter
--- OUTSIDE RECORDS SUMMARY | 2025-04-05 09:30 | XMS_ITS | Patient Health Record ---
Author Organization [facility] Address [address] [place] [address] Care Team Providers Care Poultry Grader Name Role Phone Isabella Jones Primary Care Provider Unavailab Travis Norris Unavailable [phone] David Rowan Unavailable Unavailable Reason For Referral [...] Problem Long-term current use of drug therapy (351694058) Encounter for long-term (current) use of other medications (V58.69) Active confirmed Problem Colon cancer screening (931163129) Colon cancer screening (V76.51) Active confirmed Plan Of Treatment Future Test Test Name Order Date COLONOSCOPY 09/21/2013 Insurance Providers Payer Name Payer Address Payer Phone Subscriber Number Group Number Insured Name Patient Relationship to Insured Coverage Start Date Coverage End Date MEDICAID OF [facility] [address] [place] [address] [phone] [id number] IVETTE GUSMAN Self - patient is the insured Medical (General) History Medical History History ICD Code Denies [place],DM,CVA,Lung disease,renal dise ase previous iron deficiency anemia, followe d by Dr. Rowan Surgical History Surgery Date(Month/Year) section hernia repair
--- OUTSIDE RECORDS SUMMARY | 2025-04-05 09:30 | XMS_ITS | Clinical Summary ---
Author Organization [facility] Address [address] [place] [phone] Phone Care Team Providers Care Executive Chef Name Role Phone Pcp, Unknown Primary Care Provider Unavailabl e Allergies No known active allergies Medications lidocaine (LIDODERM) 5 % Place 1 patch onto the skin daily. Remove & Discard patch within 12 hours or as directed by MD 30 patch 03/30/2024 Active Social History Tobacco Use Types Packs/Day Years Used Date Smoking Tobacco: Never Assessed Education Answer Date Recorded Are you interested in more education? Not on lizeth e 03/30/2024 Are you concerned about learning? Not on file 03/30/2024 No 03/30/2024 No 03/30/2024 Digital Access Answer Date Recorded No 03/30/2024 No 03/30/2024 Reliable internet access at home? Not on file 03/30/2024 Device with a working camera? Not on file Intimate Partner Violence Answer Date R ecorded Are you denied basic needs s uch as food, clothing, or medical care? No 03/30/2024 In the past 12 months have y ou been in a relationship with a person who hurts, threatens, or tries to control you? No 03/30/2024 Are you denied basic needs s uch as food, clothing, or medical care? No 03/30/2024 In the past 12 months have y ou been in a relationship with a person who hurts, threatens, or tries to control you? No 03/30/2024 Comments Unknown Sex and Gender Information Value Date Recorded Sex Assigned at Female 03/30/2024 10:34 AM EDT Legal Sex Female 10:25 AM EDT Gender Identity Female 03/30/2024 10:34 AM EDT Sexual Orientation Straight 03/30/2024 11 :27 AM EDT Last Filed Vital Signs Vital Sign Reading Time Taken Comments Blood Pressure 98/61 03/30/2024 1:48 PM EDT Pulse 65 03/30/2024 1:48 PM EDT Temperature 36.3 C (97.4 F) 03/30/2024 1:48 PM EDT Respiratory Rate 16 03/30/2024 1:48 PM EDT Oxygen Saturation 98% 03/30/2024 1:48 PM EDT Inhaled Oxygen Concentration - - Weight 73 kg (161 lb) 03/30/2024 10:33 AM EDT Height 157.5 cm (5' 2 ) 03/30/2024 10:33 AM EDT Body Mass Index 29.45 03/30/2024 10:33 AM EDT Plan of Treatment Health Maintenance Due Date Last Done Comments Adult Td,Tdap Booster 1965 LIPID PANEL 1963 DEPRESSION SCREENING 1975 SMOKING Hx and SMOKELESS TOB ACCO SCREENING 11/22/1976 HEPATITIS C SCREENING 11/22/1981 HIV ONE-TIME SCREENING (18-6 5 YEARS) 11/22/1981 PAP SMEAR 11/22/1984 MAMMOGRAM 2003 COLOGUARD 11/22/2008 COLONOSCOPY 11/22/2008 COLORECTAL CANCER SCREENING 11/22/2008 FIT TEST 11/22/2008 FOBT 11/22/2008 SIGMOIDOSCOPY 11/22/2008 VIRTUAL COLONOSCOPY 11/22/2008 PNEUMOCOCCAL VACCINES (50+ y ears) (1 of 1 - PCV) 11/22/2013 ZOSTER VACCINES (1 of 2) 11/22/2013 COVID-19 VACCINE ( - 2023-2 5 season) 2024 SCREENING FOR DIABETES 03/30/2027 03/30/2024 RSV VACCINE (1 - 1-dose 75+ series) 11/22/2038 HEPATITIS A VACCINES Aged Out No long er eligible based on patient's age to complete this topic HIB VACCINES Aged Out No longer eligi ble based on patient's age to complete this topic MENINGOCOCCAL VACCINES (ACWY) Aged Out No longer eligible based on patient's age to complete this topic MENINGOCOCCAL VACCINES (B) Aged Out N o longer eligible based on patient's age to complete this topic Medical Devices Not on file Insurance [facility] NON NSP[facility] PCP [facility] Care Teams Executive Chef Relationship Specialty Start Date End Date Pcp, Unknown PCP - General 03/30/24 Additional Source Comments The information contained in this document represents components of the legal health record. It is not the complete legal health record.[facility]
--- OUTSIDE RECORDS SUMMARY | 2025-04-05 09:30 | XMS_ITS | Clinical Summary ---
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 Family History Medical History Relation Comments Hypertension [...] [facility] [address] [address] [place]child [place] [address] [address] Health Maintenance Due Date Last Done Comments Breast Cancer Screening 1965 Pneumococcal Vaccine: 50+ Ye ars (1 of 2 - PCV) 11/22/1982 Colorectal Cancer Screening: Annual FOBT 11/22/2012 Colorectal Cancer Screening: Colonoscopy 11/22/2012 Colorectal Cancer Screening: Sigmoidoscopy 11/22/2012 Influenza Vaccine (#1) 2025 Hepatitis B Vaccine Aged Out No longe r eligible based on patient's age to complete this topic Insurance [address] [place] [id number] [facility] Care Teams Rehabilitation Program Manager Relationship Specialty Start Date End Date Monica Anaya MD [address] [place] [address] PCP - General Internal Medicine 03/20/21
[2025-04-05 09:40] VITALS: BP 112/66; PULSE 61; TEMP 36.6; O2SAT 100; BMI 29.1
--- NOTE | 2025-04-05 09:40 | AM.OFFWIN_ITS ---
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 - The patient reports an itchy throat an d hoarse voice since Thursday, accompanied by a persistent cough. - The patient describes the cough as pro ductive, with phlegm being expelled when the throat starts itching. - The symptoms have persisted since onse t, with no significant improvement reported. - The patient has taken tea at home to a lleviate symptoms but has not used any other medications. - The patient denies any history of asth ma, fever, chest pain, shortness of breath, or fatigue. - She has no sick contacts or travel. Physical Exam General: Cooperative, healthy appearing, comfortable and no acute distress Orientation/consciousness: Patient oriented x3 Limitations: No limitations Head: Normal to inspection Ears: Hearing grossly normal bilaterally, external ears normal and TM's normal bilaterally Nose: Normal external nose present, normal nares present, and no nasal discharge present. Face and sinus: Sinuses nontender to palpation. Mouth: Normal oral and palatal mucosa present and moist mucous membranes noted. Throat: Tonsils normal. Uvula is midline. Posterior oropharynx with erythema and no exudates. Eyes: Appearance normal, both eyes and all related structures Neck: Normal visual inspection, full ROM. No lymphadenopathy noted. Respiratory: Clear to auscultation bilaterally. Normal respiratory effort, able to speak in complete sentences. No respiratory distress, not tachypneic, no tripod positioning and no use of accessory muscles. Cardiovascular: Regular rate and rhythm. Normal S1 and S2 Skin: No rashes or lesions noted Patient was informed and verbally consented to the use of an ambient scribe for clinic note documentation during this visit [facility] Medical History Lupus Hyperlipemia HTN (hypertension) Surgical History Hx of colonoscopy S/P hernia surgery Hx of section Social History Are you a primary behavioral health care manager to a significant other at home: No Do you presently have visiting nurse or other home services: No Alcohol intake: never Patient Tobacco Use Status: Never used Tobacco Gender identity: Female Female Reproductive History Menstrual Age of Menarche: 10 Review of Systems Const All systems reviewed & are unremarkable except as noted in HPI and below Physical Exam Vital Signs: Last Vital Signs Temp 97.9 F 04/05/25 09:40 Pulse 61 04/05/25 09:40 BP 112/66 04/05/25 09:40 Pulse Ox 100 04/05/25 09:40 Oxygen Delivery Method Room Air 04/05/25 09:40 BMI result Body Mass Index 29.1 Assessment & Plan Assessment & Plan (1) Cough: Code(s): R05.9 - Cough, unspecified Qualifiers: Cough type: acute Qualified Code(s): R05.1 - Acute cough Plan Most likely viral illness vs URI vs flu vs RSV plan - A swab was conducted for COVID-19, influenza, and RSV tsting. - Tessalon perles as needed for cough - The patient was advised to take Tylenol and Motrin at home for symptom relief. - The patient will be contacted with the results of the swab test later today. Orders: Orders SARS-CoV2/FLU/RSV Today R09.89 - Other specified symptoms and signs involving the circulatory and respiratory systems Coding Level of Care Code Est Pt Level 3 (08799) Diagnoses Acute cough R05.1 Cough type: acute
== END 2025-04-05 10:54 | disposition home or self-care (01) ==
PROVIDERS: PCP Internal Medicine; Visit Provider Physician Assistant Medical
DX: R05.1 Acute cough (principal)

== ENCOUNTER 2025-04-05 09:04 | Outpatient (REF) | payer OTHER, SELFPAY ==
[2025-04-05 14:50] LABS: Resp Syncy Virus RNA Qual PCR NEGATIVE (Negative); SARS COV2 PCR INHOUSE NEGATIVE (Negative)
== END 2025-04-05 09:05 | disposition home or self-care (01) ==
LOC: HO.LNP 09:04
PROVIDERS: PCP Internal Medicine; Visit Provider Physician Assistant Medical
DX: R05.1 Acute cough (principal); R09.89 Other specified symptoms and signs involving the circulatory and respiratory systems
CPT/HCPCS: 87637; 99212

== ENCOUNTER 2025-06-02 11:21 | Outpatient (REF) | payer MEDICAID, SELFPAY ==
[2025-06-03 03:13] LABS: Bacterial Vaginosis PCR NEGATIVE (Negative); Candida Group PCR NOT DETECTED (Not Detect); Candida glab krusei PCR NOT DETECTED (Not Detect); Trichomonas vaginalis PCR NOT DETECTED (Not Detect)
== END 2025-06-02 11:22 | disposition home or self-care (01) ==
LOC: HO.LNP 11:21
PROVIDERS: PCP Internal Medicine; Visit Provider Advanced Practice Midwife
DX: Z01.419 Encounter for gynecological examination (general) (routine) without abnormal findings (principal); B37.31 Acute candidiasis of vulva and vagina; Z20.2 Contact with and (suspected) exposure to infections with a predominantly sexual mode of transmission
CPT/HCPCS: 81515; 99396; 99459

== ENCOUNTER 2025-06-02 11:21 | Outpatient (AMB) | payer MEDICAID, SELFPAY ==
--- NOTE | 2025-06-02 11:35 | A.OFFVIS_ITS ---
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 Intake Note: c/o of vaginal itching for a few days School Bus Driver/Mechanic Required: Yes School Bus Driver/Mechanic Language: Home Demonstrator Services: School Bus Driver/Mechanic Present (in person) School Bus Driver/Mechanic Name: Yesica SALDANA Information Interpreted: non-clinical & clinical Executive Producer: Executive Producer Present (Yesica Isma CECYLavell) Accompanied by: Self / Same As Patient Allergies No Known Allergies Allergy (Verified 06/02/25 11:41) Medication List - Last Reconciled 06/02/25 by Letty Montes CNM acetaminophen 1,000 mg (2 x 500 mg) PO Q6H PRN atorvastatin 10 mg PO DAILY hydroxychloroquine 200 mg PO BID lisinopril-hydrochlorothiazide 20-12.5 mg 1 tab PO DAILY triamcinolone acetonide 0.5% 1 appl topical DAILY PRN Post menopausal: Yes HPI HPI 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 She has had a yeast infection before in her life and remembers at they gave her a cream that she put in with tubes and it worked, She is up-to-date on her mammograms she is not sexually active. She is not due for Pap smear this year. [facility] Medical History Lupus Hyperlipemia HTN (hypertension) Surgical History Hx of colonoscopy S/P hernia surgery Hx of section Family History (Updated 06/02/25 @ 11:42 by Yesica Ashby CMA) Father HTN (hypertension) Social History (Updated 06/02/25 @ 11:43 by Yesica Ashby CMA) Household Members: None Housing: Apartment Are you a primary long term care administrator to a significant other at home: No Do you presently have visiting nurse or other home services: No Alcohol intake: never Patient Tobacco Use Status: Never used Tobacco Current occupational status: employed Current occupation: [employer] Sexually active: No Sexual orientation: Straight/Heterosexual Gender identity: Female Female Reproductive History Menstrual Age of Menarche: 10 Menopause type: natural Total pregnancies: 5 Full term: 3 Number of Living Children: 3 Ab spontaneous: 2 Date of last pap smear: 01/23/22 Date of Mammogram: 12/19/24 Physical Exam Vital Signs: Last Vital Signs BP 102/60 06/02/25 11:38 BMI result Body Mass Index 28.3 Const General: healthy appearing, comfortable, no acute distress, well developed and alert Nutritional Appearance: average body habitus Orientation/consciousness: patient oriented x3 Limitations: no limitations HEENT Head: Yes normocephalic Neck Neck: Yes normal visual inspection Chest Chest palpation & inspection: normal inspection of the chest Breast/axilla inspection: normal inspection of the breasts and normal inspection of the axillae Breast/axilla palpation: normal palpation of the breasts and normal palpation of the axillae Resp Effort & Inspection: normal respiratory effort GI Inspection: Yes normal to inspection, No Abdominal wall edema and No distended Palpation (GI): Soft to palpation and nontender Other: External exam within normal limits vagina pink and moist there is a creamy white discharge which could be consistent with yeast no erythema noted cervix nulliparous long thick closed uterus small firm midposition mobile nontender, cervix is somewhat anterior in vagina thin long Mohamud speculum needed extremely good muscle tone low pubic arch. General: Yes bladder normal to palpation External Female Exam: normal external appearance and normal appearance of the urethra Speculum Exam - Vagina: normal appearance of the vagina, normal palpation and normal vaginal discharge Speculum Exam - Cervix: normal appearance of the cervix, normal palpation and nontender Bimanual exam- vagina & uterus: normal bimanual exam, normal palpation, uterine size normal, bladder normal to palpation, consistency normal, normal palpation, uterine mobility normal, uterine shape normal, No Cervical tenderness present, non-tender and no cervical motion tenderness Bimanual Exam- Adnexa, other: normal adnexae, no masses, normal and No adnexal tenderness Neuro General: patient oriented x3 Assessment & Plan Assessment & Plan (1) Well woman exam with routine gynecological exam: Code(s): Z01.419 - Encounter for gynecological examination (general) (routine) without abnormal findings Category: Medical (2) Cervical cancer screening: Comment: lsil 2007,, neg 2020, pap done 01/22/22= neg w neg hpv Code(s): Z12.4 - Encounter for screening for malignant neoplasm of cervix Category: Medical (3) Yeast infection of the vagina: Comment: asysmptomatic, not enflamed, rxd for prn use.(miconazole and clotrimazole were not covered so she went without in 2021) Mild symptoms 2022 prescribed alternative... symptomatic 06/02/25- rx monistat or otc alt...(if not covered) Code(s): B37.3 - Candidiasis of vulva and vagina Category: Medical Plan -----Discussed in this visit the following: healthy balanced diet, regular and consistent exercise, getting recommended health screens, doing the best she can for her particular health concerns, kegel exercises, pap smear screening and followup recommendations, mammography screening and SBE, normal changes in cycles in her life stage--- . She does not need anything other than a cream for the yeast infection which is all it appears to be. Prescription sent for Monistat and but if it is not covered by her insurance then she could pick it up for less money OTC. Orders: Orders Bacterial Vaginosis Panel Today N89.8 - Other specified noninflammatory disorders of vagina Medications: New miconazole nitrate 2% (Miconazole-7) 1 appful vaginal BEDTIME 45 grams 2RF 7 days Coding Level of Care Code Est Pt Prev Care 40-64y(01535) Diagnoses Well woman exam with routine gynecological exam Z01.419 Cervical cancer screening Z12.4 Yeast infection of the vagina B37.3
[2025-06-02 11:38] VITALS: BP 102/60; BMI 28.3
--- OUTSIDE RECORDS SUMMARY | 2025-06-02 13:46 | XMS_ITS | Encounter Summary ---
Author Organization [employer] Address [address] [place] [address] Care Team Providers Care Owner Name Role Phone Unavailable Primary Care Provider Unavailabl e Encounter Details Date Type Department Care Team (Latest Contact Info) Description 03/04/2022 Abstract [facility] CONVERSIONS Dental, Provider, DDS Social History Tobacco [...] Care Team (Late st Contact Info) Description 08/23/2025 3:00 PM EST Office Visit [facility] ADULT [facility] [address] [place] [address] Ijeoma Olvera documented as of this encounter Visit Diagnoses Not on filedocumented in this encounter
--- OUTSIDE RECORDS SUMMARY | 2025-06-02 13:46 | XMS_ITS | Encounter Summary ---
Author Organization [employer] Address [address] [facility] [address] [place] [address] Care Team Providers Care Correctional Officer Chief Name Role Phone Unavailable Primary Care Provider Unavailabl e Encounter Details Date Type Department Care Team (Latest Contact Info) Description 07/09/2021 Abstract [facility] CONVERSIONS Dental, Provider, DDS Social History [...] Description 08/23/2025 3:00 PM EST Office Visit [facility] ADULT DENTAL [address] [place] [address] Ijeoma Olvera documented as of this encounter Visit Diagnoses Not on filedocumented in this encounter
--- OUTSIDE RECORDS SUMMARY | 2025-06-02 13:47 | XMS_ITS | Clinical Summary ---
Author Organization [facility] Address [address] [place] [address] Phone Care Team Providers Care Tumbler Machine Operator Name Role Phone Monica Anaya MD Primary Care Provider [phone] Allergies No known active allergies Medications hydroxychloroqu [...] Office Visit [facility] [address] [address] Octavio Fairchild MD [address] [address] Health Maintenance Due Date Last Done Comments Breast Cancer Screening 1965 Pneumococcal Vaccine: 50+ Ye ars (1 of 2 - PCV) 11/22/1982 Colorectal Cancer Screening: Annual FOBT 11/22/2012 Colorectal Cancer Screening: Colonoscopy 11/22/2012 Colorectal Cancer Screening: Sigmoidoscopy 11/22/2012 Influenza Vaccine (#1) 2025 Hepatitis B Vaccine Aged Out No longe r eligible based on patient's age to complete this topic Insurance [address] [place] [id number] [facility] Member Subscriber Plan / Payer (Ef fective 2024-Present) Name:Mala Allen Relation to Subscriber:Self Name:Mala Allen Payer ID:[id number] ([facility]) Type:Not on file Address: [address] [address] Care Teams Tumbler Machine Operator Relationship Specialty Start Date End Date Monica Anaya MD [address] [place] [address] PCP - General Internal Medicine 03/20/21
--- OUTSIDE RECORDS SUMMARY | 2025-06-02 13:47 | XMS_ITS | Patient Health Record ---
Author Organization [facility] Address [address] [place] [address] Care Team Providers Care Relay Repairer Name Role Phone Isabella Jones Primary Care Provider Unavailab Travis Norris Unavailable [phone] David Rowan Unavailable Unavailable Reason For Referral No Information Medications Medication SIG (Take, Route, Frequency, Duration) Notes Start Date End Date Status Colyte with Flavor Packs 227.1 GM As directed Orally As directed; Duration: 1 day(s) 09/21/2013 Active Iron Active Vitamin D Active Vitamin C Active Problems Problem Type SNOMED Code ICD Code Onset Dates Problem Status W/U Status Risk Notes Problem Long-term current use of drug therapy (846648081) Encounter for long-term (current) use of other medications (V58.69) Active confirmed Problem Colon cancer screening (610870257) Colon cancer screening (V76.51) Active confirmed Plan Of Treatment Future Test Test Name Order Date COLONOSCOPY 09/21/2013 Insurance Providers Payer Name Payer Address Payer Phone Subscriber Number Group Number Insured Name Patient Relationship to Insured Coverage Start Date Coverage End Date MEDICAID OF [facility] [address] [place] [address] [id number] IVETTE GUSMAN Self - patient is the insured Medical (General) History Medical History History ICD Code Denies [place],DM,CVA,Lung disease,renal dise ase previous iron deficiency anemia, followe d by Dr. Rowan Surgical History Surgery Date(Month/Year) section hernia repair
--- OUTSIDE RECORDS SUMMARY | 2025-06-02 13:47 | XMS_ITS | Clinical Summary ---
Author Organization [facility] Address [address] [place] [phone] Phone Care Team Providers Care Fence Erector Supervisor Name Role Phone Pcp, Unknown Primary Care [...] 11/22/2013 ZOSTER VACCINES (1 of 2) 11/22/2013 INFLUENZA VACCINE (#1) 2025 COVID-19 VACCINE ( - 2024-2 6 season) 2025 SCREENING FOR DIABETES 03/30/2027 03/30/2024 RSV VACCINE [...] topic Medical Devices Not on file [facility] Care Teams Fence Erector Supervisor Relationship Specialty Start Date End Date Pcp, Unknown PCP - General 03/30/24 Additional Source Comments The information contained in this document represents components of the legal health record. It is not the complete legal health record.[facility]
--- OUTSIDE RECORDS SUMMARY | 2025-06-02 13:47 | XMS_ITS | Clinical Summary ---
Author Organization [employer] Address [address] [facility] [facility] [address] [place] [address] Care Team Providers Care Event Coordinator Marketing And Sales Name Role Phone Unavailable Primary Care Provider [...] 02/02/2024 Essential hypertension 02/02/2024 Glomerular disease in system ic lupus erythematosus (CMS/HCC) 05/15/2021 SLE glomerulonephritis syndrome (CMS/HCC) 2020 Resolved Problems Problem Noted Date Diagnosed Date Resolved Date Chronic kidney disease, stage 2 (mild) 02/02/2024 02/15/2025 Social History Tobacco Use Types Packs/Day Years [...] Description 08/23/2025 3:00 PM EST Office Visit [facility] ADULT DENTAL [address] [place] [address] Ijeoma Olvera Health Maintenance Due Date Last [...] (2 of 2 - PCV) 08/05/2018 08/05/2017 Dental X-Ray: Full Mouth 06/26/2024 06/25/2021 COVID-19 Vaccine ( season) 2025 07/27/2023, 03/06/2022, 10/01/2021, Additional history exists Influenza Vaccine (#1) 2025 , 05/14/2023, 05/21/2022, [...] Associated Diagnosis Comments PROPHYLAXIS - ADULT Routine 02/15/2025 3 :00 PM EDT Periodontal disease Partial edentulism, unspecified edentulism class BITEWINGS - 4 RADIOGRAPHIC IMAGES Routine 02/15/2025 3:00 PM EDT Periodontal disease Partial edentulism, unspecified edentulism class PERIODIC ORAL EVALUATION - ESTABLISHED PATIENT Routine 02/15/2025 3:00 PM EDT Periodontal disease Partial edentulism, unspecified edentulism class INTRAORAL - COMPLETE SERIES OF RADIOGRAPHIC IMAGES Routine 06/25/2021 12:00 AM EST from Last 3 Months or Most Recently Relevant to Health Maintenance Insurance DENTAL - HSN PARTIAL (MEDICAID) [place] [address] [place] [address] [place] [address] [place] [address]
== END 2025-06-02 12:28 | disposition home or self-care (01) ==
LOC: HO.HWS 11:22
PROVIDERS: PCP Internal Medicine; Visit Provider Advanced Practice Midwife
DX: Z01.419 Encounter for gynecological examination (general) (routine) without abnormal findings (principal); B37.31 Acute candidiasis of vulva and vagina
CPT/HCPCS: 99396; 99459

== ENCOUNTER 2025-06-26 07:51 | Outpatient (REF) | payer MEDICAID, SELFPAY ==
[2025-06-26 08:40] LABS: Alanine Aminotransferase 20 U/L (0-31); Albumin Level 4.3 g/dL (3.5-5.0); Alkaline Phosphatase 62 U/L (39-117); Anion Gap 11 (12-20); Aspartate Amino Transferase 27 U/L (5-31); Blood Urea Nitrogen 16 mg/dL (9-16); Calcium 9.5 mg/dL (8.4-10.2); Carbon Dioxide 29 mmol/L (22-29); Chloride 104 mmol/L (96-108); Estimated Glomerular Filt Rate > 60; Potassium 4.0 mmol/L (3.3-5.1); Sodium 140 mmol/L (135-145); Total Protein 7.3 g/dL (6.5-8.0)
== END 2025-06-26 07:52 | disposition home or self-care (01) ==
LOC: HO.LAB 07:51
PROVIDERS: PCP Internal Medicine; Visit Provider Internal Medicine
DX: Z00.00 Encounter for general adult medical examination without abnormal findings (principal); E78.00 Pure hypercholesterolemia, unspecified; M32.9 Systemic lupus erythematosus, unspecified; R80.8 Other proteinuria
CPT/HCPCS: 36415; 80053